=== PATIENT | female | born 1980 | race Caucasian/White ===

== ENCOUNTER 2024-11-24 09:38 | Outpatient (OUT) | payer OTHER, SELFPAY | END 2024-11-24 09:39 | disposition home or self-care (01) | PROVIDERS: Visit Provider Obstetrics & Gynecology | DX: Z01.818 Encounter for other preprocedural examination (principal); O02.1 Missed abortion | CPT/HCPCS: 86850; 86900; 86901; G0463 ==

== ENCOUNTER 2024-11-25 10:56 | Day surgery (SDC) | payer OTHER, SELFPAY ==
[2024-11-24 10:29] VITALS: BP 112/73; PULSE 77; TEMP 36.4; O2SAT 100; BMI 23.0
--- NOTE | 2024-11-24 11:06 | PM.PRESUREVA ---
History of Present Illness History of Present Illness Chief complaint: MISSED AB Narrative: Mrs. Connie Odell is a pleasant 44-year-old female who presents to presurgical testing today as she is scheduled for a D&C with suction for the diagnosis of missed with Dr. Conklin on 11/25/2024. She reports continued vaginal bleeding and cramping Review of Systems ROS Narrative REVIEW OF SYSTEMS: Negative except as stated in HPI, ten or more systems reviewed. Constitutional: No fever, chills, weakness ENT: No sore throat or epistaxis Cardiovascular: No edema, chest pain, palpitations, or activity intolerance Respiratory: No shortness of breath, cough, or wheezing Musculoskeletal: No joint pain or swelling Gastrointestinal: She reports continued vaginal bleeding and abdominal cramping no complaints of constipation, diarrhea, or vomiting Genitourinary: No dysuria or hematuria Neurological: No numbness, tingling, weakness, or headache Psychiatric: No mood changes PFSH PFSH Medical History (Updated 11/24/24 @ 10:35 by Janelle Amin) Rheumatoid arthritis ?M06.9 - Rheumatoid arthritis, unspecified (ICD-10) Hearing loss ?H91.90 - Unspecified hearing loss, unspecified ear (ICD-10) Thyroid cancer ?C73 - Malignant neoplasm of thyroid gland (ICD-10) 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 - Autoimmune thyroiditis (ICD-10) 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) Surgical History (Updated 11/24/24 @ 10:57 by Janelle Amin) History of thyroidectomy ?Z98.890 - Other specified postprocedural states (ICD-10) ?Z90.89 - Acquired absence of other organs (ICD-10) History of section ?Z98.891 - History of uterine scar from previous surgery (ICD-10) History of cholecystectomy ?Z90.49 - Acquired absence of other specified parts of digestive tract (ICD-10) Family History (Updated 11/24/24 @ 10:31 by Janelle Amin) Other Family history of COPD (chronic obstructive pulmonary disease) Family history of thyroid cancer Social History (Updated 11/24/24 @ 10:14 by Janelle Amin) Within the past year, how often did you have a drink containing alcohol: never Score interpretation: A score less than 3 is consistent with normal alcohol consumption. Smoking status: Never smoker Non-prescribed substance use: denies use Previous occupational history: [employer] Highest level of school completed/degree received: some college, no degree Meds Home Medications and Allergies Home Medications ?Medication ?Instructions ?Recorded ?Confirmed ?Type ivermectin 3 mg tablet 6 mg PO .every week 11/24/24 11/24/24 History levothyroxine 150 mcg capsule 150 mcg PO DAILY 11/24/24 11/24/24 History liothyronine 5 mcg tablet 5 mcg PO DAILY 11/24/24 11/24/24 History naltrexone 11/24/24 History tirzepatide (weight loss) 11/24/24 History Allergies Allergy/AdvReac Type Severity Reaction Status Date / Time fish allergy Allergy Severe Anaphylaxis Uncoded 11/24/24 09:24 Exam Narrative Exam Narrative: Constitutional: Awake, alert, comfortable, well-appearing, nontoxic, interactive, vital signs as charted Head: Normocephalic, atraumatic Eyes: Conjunctiva and lids normal to inspection, pupils normal ENT: Tympanic membranes pearly flanagan, nonerythematous, noninjected, naris patent, posterior oropharynx clear, oral mucosa moist Neck: Supple, normal appearance, normal range of motion, no meningeal signs, no lymphadenopathy Respiratory: No respiratory distress, breath sounds clear Cardiovascular: Regular rate and rhythm, strong and regular heart tones Abdomen: Nontender, normal bowel sounds, soft, no CVA tenderness Musculoskeletal: Normal gait, no swelling or edema Skin: No rashes or induration, no lesions, only visible skin inspected Neuro: No neurological deficits, normal sensation Psychiatric: Oriented ?3, normal affect Constitutional Vital Signs, click to edit/add: Last Vital Signs Temp 97.5 F L 11/24/24 10:29 Pulse 77 11/24/24 10:29 Resp 20 11/24/24 10:29 BP 112/73 11/24/24 10:29 Pulse Ox 100 11/24/24 10:29 O2 Del Method Room Air 11/24/24 10:29 Assessment and Plan Assessment and Plan (1) Missed : Plan Mrs. Rivera is scheduled for D&C with suction for missed AB on 11/25/[address] Conklin
[2024-11-25 11:05] VITALS: BP 109/77; PULSE 70; TEMP 36.3; O2SAT 100; BMI 23.1
[2024-11-25 11:06] LABS: Basophils Absolute Auto 0.1 10^3/uL (0.0-0.1); Basophils Percent Auto 1.2 % (0.2-2.0); Eosinophils Absolute Auto 0.1 10^3/uL (0.0-0.7); Eosinophils Percent Auto 1.1 % (0.9-7.0); Hematocrit 40.9 % (36.0-48.0); Hemoglobin 13.3 g/dL (12.0-16.0); Immature Granulocytes Abs Auto 0.01 10^3/uL (0.00-0.03); Immature Granulocytes Pct Auto 0.2 % (0.0-0.5); Lymphocytes Absolute Auto 2.1 10^3/uL (1.2-3.8); Lymphocytes Percent Auto 36.8 % (20.5-60.0); Mean Corpuscular HGB Conc 32.5 g/dL (29.9-35.2); Mean Corpuscular Hemoglobin 30.4 pg (26.7-34.0); Mean Corpuscular Volume 93.4 fL (81.0-99.0); Mean Platelet Volume 11.1 fL (9.5-13.5); Monocytes Absolute Auto 0.4 10^3/uL (0.3-0.8); Monocytes Percent Auto 6.8 % (1.7-12.0); Neutrophils Percent Auto 53.9 % (43.0-75.0); Platelet Count 221 10^3/uL (150-450); Red Blood Count 4.38 10^6/uL (4.20-5.40); Red Cell Distribution Width 12.3 % (11.0-15.0); White Blood Count 5.6 10^3/uL (4.0-11.0)
[2024-11-25 11:30] LABS: HCG Quantitative 65 mIU/mL
[2024-11-25] MEDS: LACTATED RINGER'S SOLUTION 1,000 ML 50 ML IV (11:45)
[2024-11-25] MEDS: LACTATED RINGER'S SOLUTION 1,000 ML 125 ML IV (14:25)
--- NOTE | 2024-11-25 14:29 | P.ON_ITS ---
Brief Operative Note Date of procedure: 11/25/24 Pre-op diagnosis general: incomplete first trimester Post-op diagnosis: same as pre-op Procedure: NAME OF PROCEDURE: [D&C suction ] PROCEDURE: The patient was taken back to the OR where she was given general anesthesia without difficulty. She was then placed in dorsal lithotomy position, prepped and draped in the normal sterile fashion. A weighted speculum was placed in the patient's vagina and the anterior lip of the cervix was identified and grasped with a single-tooth tenaculum. The patient was then gently dilated using Hegar dilators after we had sounded roughly to 12 cm. The suction curette was then tested. The suction curette was then placed in the patient's uterus and products of conception were removed using an 10-Gibraltarian suction curette. ?Excellent hemostasis was noted. The patient tolerated the procedure well. Sponge, lap, and needle counts were correct x 2. All instruments were then removed from the patient's vagina. The patient was taken to the Recovery Room in stable condition. ?? Anesthesia: MAC Surgeon: Misael Conklin Estimated blood loss (mL): 5 Pathology: other (poc) Condition: stable Disposition: PACU Urinary Catheter Management Urinary Catheter Management Straight: Cath placed during this visit: no
[2024-11-25 14:33] VITALS: BP 112/68; PULSE 116; TEMP 36.4; O2SAT 100
[2024-11-25 14:48] VITALS: BP 116/93; PULSE 83; O2SAT 100
[2024-11-25 15:03] VITALS: BP 119/86; PULSE 73; O2SAT 100
== END 2024-11-25 15:15 | disposition home or self-care (01) ==
PROVIDERS: Visit Provider Obstetrics & Gynecology
PROC: (CPT 1965; principal; 2024-11-25 12:00)
DX: O03.4 Incomplete spontaneous abortion without complication (principal); Z90.49 Acquired absence of other specified parts of digestive tract; E06.3 Autoimmune thyroiditis; Z85.850 Personal history of malignant neoplasm of thyroid; M06.9 Rheumatoid arthritis, unspecified
CPT/HCPCS: 59812; 36415; 84702; 85025; G0463; J2250; J2405; J3010

== ENCOUNTER 2025-02-06 11:18 | Outpatient (REF) | payer OTHER, SELFPAY | END 2025-02-06 11:19 | disposition home or self-care (01) | LOC: LAB 11:18 | PROVIDERS: Visit Provider Obstetrics & Gynecology | DX: N92.0 Excessive and frequent menstruation with regular cycle (principal); N93.8 Other specified abnormal uterine and vaginal bleeding; R10.2 Pelvic and perineal pain | CPT/HCPCS: 88305 ==

== ENCOUNTER 2025-02-21 12:59 | Outpatient (OUT) | payer OTHER, SELFPAY | END 2025-02-21 13:00 | disposition home or self-care (01) | LOC: PST 13:00 | PROVIDERS: Visit Provider Obstetrics & Gynecology | DX: Z01.818 Encounter for other preprocedural examination (principal); N92.0 Excessive and frequent menstruation with regular cycle; N93.9 Abnormal uterine and vaginal bleeding, unspecified; R10.2 Pelvic and perineal pain ==

== ENCOUNTER 2025-03-03 06:17 | Day surgery (SDC) | payer OTHER, SELFPAY ==
[2025-03-03] VITALS (11 sets, daily range): BP systolic 113–123; BP diastolic 62–77; PULSE 69–92; TEMP 36.1–36.2; O2SAT 79–100; BMI 22.5
--- OUTSIDE RECORDS SUMMARY | 2025-03-03 06:20 | XMS_ITS | Encounter Summary ---
Author Organization [facility] Address [address] [place] [place] [address] Care Team Providers Care Manager Medical Writing Name Role Phone lEysia Hall MD Primary Care Provider [phone] Elysia Hall MD Unavailable [phone] Encounter Details Date Type Department Care Team (Late st Contact Info) Description 01/05/2023 Abstract [facility] [address] [place] [address] [place] [address] [place] [address] Social History Tobacco Use Types Packs/Day Years Used Date Smoking Tobacco: Never Passive Smoke Exposure: Never Smokeless Tobacco: Never Alcohol Use Standard Drinks/Week Comments Yes 1 (1 standard drink = 0.6 oz pure alcohol) caffeine intake : 1-2 cups per day ; coffee Comments Unknown Sex and Gender Information Value Date Recorded Sex Assigned at Not on file Legal Sex Female 7:25 PM EDT Gender Identity Female 10/01/2022 7:25 PM EDT Sexual Orientation Not on file documented as of this encounter Plan of Treatment Upcoming Encounters Date Type Department Care Team (Late st Contact Info) Description 03/15/2025 1:20 PM EDT Office Visit [facility] [address] [place] [id number] Jessie Madrid PA [address] [place] [address] documented as of this encounter Visit Diagnoses Not on filedocumented in this encounter Care Teams Manager Medical Writing Relationship Specialty Start Date End Date Elysia Hall MD PCP - General Family Medicine 01/02/23 [place] [address] [place] [address] PCP - Medical [place] [employer] 12/18/22 10/06/24 documented as of this encounter
--- OUTSIDE RECORDS SUMMARY | 2025-03-03 06:20 | XMS_ITS | Encounter Summary ---
Author Organization [facility] Address [address] [place] [place] [address] Care Team Providers Care Cut Off Worker Name Role Phone Elysia Hall MD Primary Care Provider [phone] Elysia Hall MD Unavailable [phone] Encounter Details Date Type Department Care Team (Late st Contact Info) Description 01/07/2023 Orders Only [facility] [address] [facility] [address] [place] [address] [place], [place] [id number] Social History Tobacco Use Types Packs/Day Years [...] PM EDT Office Visit [facility] SCHMIDT [address] [place] [phone] Jessie Madrid PA [address] [place] [address] documented as of this encounter Procedures Procedure Name Priority Date/Time Associated Diagnosis Comments US THYROID Routine 01/07/2023 4:00 PM EDT documented in this encounter Results * US thyroid (01/07/2023 4:00 PM EDT) Anatomical Region Laterality Modality Head, Neck Ultrasound us Elysia Hall MD IMG US PROCEDURES Edited Result - Final documented in this encounter Visit Diagnoses Not on filedocumented in this encounter Care Teams Cut Off Worker Relationship Specialty Start Date End Date Elysia Hall MD PCP - General Family Medicine 01/02/23 [place] [address] [place] [address] PCP - Medical [place] [employer] 12/18/22 10/06/24 documented as of this encounter
--- OUTSIDE RECORDS SUMMARY | 2025-03-03 06:20 | XMS_ITS | Clinical Summary ---
Author Organization [facility] Address [address], [address] [place] [address] Care Team Providers Care Aviation Project Engineer Name Role Phone Elysia Hall DO Primary Care Provider [phone] Allergies Active Allergy Reactions Criticality Noted Date Comments Fish-Derived Products Nausea Only,Other (See Comments) High 01/16/2023 Vision loss Medications Levothyroxine Sodium (TIROSINT) 150 MCG CAPS Take 150 mcg by mouth daily 02/03/2024 Active liothyronine (CYTOMEL) 5 MCG tablet Take 1 tablet by mouth 2 times daily Active ivermectin 3 MG tablet Take by mouth once Active Active Problems Problem Noted Date Diagnosed Date Hypoparathyroidism after procedure 07/15/2023 Papillary thyroid carcinoma 07/15/2023 S/P total thyroidectomy 07/15/2023 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 Thyroid cancer 07/09/2023 Hearing loss of right ear 01/05/2023 Encounters Date Type Department Care Team Description 12/15/2024 3:00 PM EDT Office Visit [facility] [address] [place] [address] [place] [address] Elysia Hall DO Well adult exam (Primary Dx); Domitila's disease; Hypoparathyroidism after procedure; Papillary thyroid carcinoma (HCC); Thyroid cancer (HCC); Hearing loss of right ear, unspecified hearing loss type; Quincy Blankenship infection; S/P total thyroidectomy from Last 3 Months Social History Tobacco Use Types Packs/Day Years Used Date Smoking Tobacco: Never Smokeless Tobacco: Never Tobacco Cessation:Counseling Given: Not Answered [facility] Utilities Answer Date Recorded In the past 12 months has th e electric, gas, oil, or water company threatened to shut off services in your home? No 12/15/2024 PHQ-2 Answer Date Recorded PHQ-9 Total Score 0 12/15/2024 Exercise Vital Sign Answer Date Recorde d On average, how many days pe r week do you engage in moderate to strenuous exercise (like a brisk walk)? 6 days 12/14/2024 On average, how many minutes do you engage in exercise at this level? 50 min 12/14/2024 Hunger Vital Sign Answer Date Recorded Within the past 12 months, y ou worried that your food would run out before you got the money to buy more. Never true 12/16/19 25 Within the past 12 months, t he food you bought just didn't last and you didn't have money to get more. Never true 12/15/2024 PRAPARE - Transportation Answer Date Re corded In the past 12 months, has l ack of transportation kept you from medical appointments or from getting medications? No 11/18 In the past 12 months, has l ack of transportation kept you from meetings, work, or from getting things needed for daily living? No 12/15/2024 Housing Stability Vital Sign Answer Ramírez e Recorded In the last 12 months, was t here a time when you were not able to pay the mortgage or rent on time? No 12/15/2024 In the past 12 months, how m any times have you moved where you were living? 0 12/15/2024 At any time in the past 12 m [facility], were you homeless or living in a detention (including now)? No 12/15/2024 Food Insecurity Answer Date Recorded Within the past 12 months, y ou worried that your food would run out before you got the money to buy more. 1 12/15/2024 Within the past 12 months, t he food you bought just didn't last and you didn't have money to get more. 1 12/15/2024 Comments Unknown Sex and Gender Information Value Date Recorded Sex Assigned at Not on file Legal Sex Female 8:57 AM EST Gender Identity Not on file Sexual Orientation Not on file Last Filed Vital Signs Vital Sign Reading Time Taken Comments Blood Pressure 114/82 12/15/2024 3:17 PM EDT Pulse 94 12/15/2024 3:17 PM EDT Temperature - - Respiratory Rate 14 12/15/2024 3:17 PM EDT Oxygen Saturation 99% 12/15/2024 3:17 PM EDT Inhaled Oxygen Concentration - - Weight 69.9 kg (154 lb) 12/15/2024 3:17 PM EDT Height 174 cm (5' 8.5 ) 12/15/2024 3:17 PM EDT Body Mass Index 23.08 12/15/2024 3:17 PM EDT Plan of Treatment Health Maintenance Due Date Last Done Comments Varicella vaccine (1 of 2 - 13+ 2-dose series) 1993 HIV screen 1995 Hepatitis C screen 1998 Hepatitis B vaccine (1 of 3 - 19+ 3-dose series) 1999 Pap smear 2001 Cervical cancer screen 2010 HPV (without or with Pap) 2010 Lipids 2020 COVID-19 Vaccine (1 - 2023-2 5 season) 2024 Breast cancer screen 07/17/2024 07/17/2022 DTaP/Tdap/Td vaccine (2 - Td or Tdap) 08/25/2024 08/25/2014 Flu vaccine (#1) 02/17/2025 Depression Screen 12/15/2025 12/15/2024, 12/15/2024 HPV vaccine (No Doses Required) Completed Hepatitis A vaccine Aged Out No longe r eligible based on patient's age to complete this topic Hib vaccine Aged Out No longer eligi ble based on patient's age to complete this topic Meningococcal (ACWY) vaccine Aged Out No longer eligible based on patient's age to complete this topic Meningococcal B vaccine Aged Out No l onger eligible based on patient's age to complete this topic Pneumococcal 0-49 years Vaccine Aged Out No longer eligible b ased on patient's age to complete this topic Polio vaccine Aged Out No longer elig ible based on patient's age to complete this topic Insurance [employer] Care Teams Aviation Project Engineer Relationship Specialty Start Date End Date Elysia Hall DO [address] [place] [place] [address] [place] [address] PCP - General Family Medicine 11/08/24
--- OUTSIDE RECORDS SUMMARY | 2025-03-03 06:21 | XMS_ITS | Clinical Summary ---
Author Organization [facility] Address [address] [place] [address] Care Team Providers Care Brush Polisher Name Role Phone Elysia Hall DO Primary Care Provider [phone] Allergies Active Allergy Reactions Criticality Noted Date Comments Fish Containing Products Nausea Only,Oth er (See Comments),Nausea And Vomiting High 04/28/2019 Vision loss Medications naltrexone 1.5 mg capsule Take 1.5 mg by mouth once daily. Active ascorbic acid (vitamin C) (VITAMIN C) 100 mg Tablet Take 100 mg by mouth in the morning. Active coenzyme Q10 30 mg capsule Take 30 mg by mouth. Active collagen/biotin /ascorbic acid (COLLAGEN 1500 PLUS C ORAL) Active ngmlrfk-spwr-ho zfw-jrxl-[id number] 100 mg-150 mg- 50 mg-150 mg Capsule Active mecobalamin (B12 ACTIVE ORAL) Active FREE-TEXT MEDICATION Burn per patient OTC Active vitamin B complex (B COMPLEX ORAL) Active DANDELION ROOT ORAL Active digestive enzymes combo no.7 Capsule Active HYDROcodone-idalmis taminophen (NORCO) 5-325 mg tablet Take 1 tablet by mouth every six hours as needed for pain. 8 tablet 3 Active Additional Information Patient not taking.Reported on 09/02/2023 calcitRIOL 0.25 mcg capsule Take 1 capsule (0.25 mcg) by mouth once daily. Contact Dr Mittal's staff for refills BEFORE you are out of medication 90 capsule 4 3 Active Additional Information Patient not taking.Reported on 09/02/2023 ondansetron (ZOFRAN) 4 mg tablet Take 1 tablet (4 mg) by mouth every six hours as needed for nausea. 6 tablet 3 Active TIROSINT 150 mcg capsule Take 1 capsule (150 mcg) by mouth once daily, 30 min prior to meal. 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 Family History Medical History Relation Name Comments Autoimmune disease Father Cancer Father Autoimmune disease Mother Cancer Mother Anesth problems Neg Hx Bleeding disorder Neg Hx Deep vein thrombosis Neg Hx Pulmonary embolism Neg Hx Relation Name Status Comments Father Mother Social History Tobacco Use Types Packs/Day Years Used Date Smoking Tobacco: Never Smokeless Tobacco: Never Tobacco Cessation:Counseling Given: Not Answered Alcohol Use Standard Drinks/Week Comments Not Currently 0 (1 standard drink = 0.6 oz pur e alcohol) AUDIT-C Answer Date Recorded Q1: How often do you have a drink containing alcohol? Never 07/15/2023 Q2: How many drinks containi ng alcohol do you have on a typical day when you are drinking? Patient does not drink Q3: How often do you have si x or more drinks on one occasion? Never 07/15/2023 Hunger Vital Sign Answer Date Recorded Within the past 12 months, y ou worried that your food would run out before you got the money to buy more. Never true 07/15/20 23 Within the past 12 months, t he food you bought just didn't last and you didn't have money to get more. Never true 07/15/2023 PRAPARE - Transportation Answer Date Re corded In the past 12 months, has l ack of transportation kept you from medical appointments or from getting medications? No 06/20 In the past 12 months, has l ack of transportation kept you from meetings, work, or from getting things needed for daily living? No 07/15/2023 Comments No Sex and Gender Information Value Date Recorded Sex Assigned at Not on file Legal Sex Female 12:22 PM EDT Gender Identity Not on file Sexual Orientation Not on file Last Filed Vital Signs Vital Sign Reading Time Taken Comments Blood Pressure 127/72 04/21/2024 10:06 AM EDT Pulse 72 04/21/2024 10:06 AM EDT Temperature 36.3 C (97.3 F) 04/21/2024 10:06 AM EDT Respiratory Rate 16 04/21/2024 10:06 AM EDT Oxygen Saturation 97% 07/16/2023 7:18 AM EST Inhaled Oxygen Concentration - - Weight 68.7 kg (151 lb 7.3 oz) 04/21/2024 10:06 AM EDT Height 175.3 cm (5' 9 ) 07/15/2023 5:49 AM EST Body Mass Index 22.37 07/15/2023 5:49 AM EST Plan of Treatment Health Maintenance Due Date Last Done Comments Hepatitis C Screening 1980 Hepatitis B Vaccine ages 19 years and older (1 of 3 - 19+ 3-dose series) 1999 Cervical Cancer Screening: Cytology 2001 Alternating Mammogram/MRI 01/15/2023 07/17/2022 COVID-19 Vaccine (1 - 2023-2 5 season) 2024 Breast Cancer Screening 07/17/2024 Mammogram 07/17/2024 07/17/2022 DTaP,Tdap,and Td Vaccines (2 - Td or Tdap) 08/25/2024 08/25/2014 Influenza Vaccine (#1) 2025 Respiratory Syncytial Virus (RSV) or ages 60 years and older (1 - 1-dose 75+ series) 2055 Pneumococcal Combined Aged Out No camacho margaret eligible based on patient's age to complete this topic Respiratory Syncytial Virus (RSV) ages 0 thru 19 months Aged Out No longer eligible based on patient's age to complete this topic Insurance [facility] Care Teams Brush Polisher Relationship Specialty Start [place] [address] [place] [address] PCP - General Family Medicine 06/26/23
--- OUTSIDE RECORDS SUMMARY | 2025-03-03 06:21 | XMS_ITS | Encounter Summary ---
Author Organization [facility] Address [address] [place] [address] Care Team Providers Care Brass Chaser Name Role Phone Elysia Hall MD Primary Care Provider Elysia Hall MD Unavailable [phone] Encounter Details Date Type Department Care Team (Late st Contact Info) Description 05/18/2023 Abstract [facility] [address] [place] [place] [address] [place] [address] [place] [address] Social History Tobacco Use Types Packs/Day Years [...] PM EDT Office Visit [facility] SCHMIDT [address] [place] [phone] Jessie Madrid PA [address] [place] [address] documented as of this encounter Visit Diagnoses Not on filedocumented in this encounter Care Teams Brass Chaser Relationship Specialty Start Date End Date Elysia Hall MD PCP - General Family Medicine 01/02/23 [place] [address] [place] [address] PCP - Medical [place] [employer] 12/18/22 10/06/24 documented as of this encounter
--- OUTSIDE RECORDS SUMMARY | 2025-03-03 06:21 | XMS_ITS | Encounter Summary ---
Author Organization [facility] Address [id number] [address] [place] [address] Care Team Providers Care Land Planner Name Role Phone Elysia Hall DO Primary Care Provider [phone] Encounter Details Date Type Department Care Team (Late st Contact Info) Description 04/17/2023 Telephone [facility] [address] [facility] [address] [place] [phone] Rebecca Painter LPN Social History Tobacco Use Types Packs/Day Years Used Date Smoking Tobacco: Never Smokeless Tobacco: Never Alcohol Use Standard Drinks/Week Comments Yes 0 (1 standard drink = 0.6 oz pur e alcohol) social Childcare Answer Date Recorded Childcare Unknown 12/29/2018 Employment Answer Date Recorded Employment Unknown 12/29/2018 Purpose - Life Answer Date Recorded Purpose and direction in life Unknown Comments No Sex and Gender Information Value Date Recorded Sex Assigned at Female 04/30/2023 8:24 AM EDT Legal Sex Female 11:41 AM EDT Gender Identity Female 04/30/2023 8:24 AM EDT Sexual Orientation Not on file documented as of this encounter Miscellaneous Notes * Telephone Encounter - Rebecca Painter LPN - 04/17/2023 4:16 PM EDT PT CALLED STATING SHE WANTS TO TAKE BIOIDENTICAL THYROID HORMONE NOT SYNTHROID AND SHE WANTS TO KNOW WHY HER T3 WASN'T CHECKED. * Telephone Encounter - Jah Gonzales MD - 04/17/2023 4:16 PM EDT I check T3 if pt's are taking armor thyroid med . Does she want to go on Armor thyroid ? * Telephone Encounter - Rebecca Painter LPN - 04/17/2023 4:16 PM EDT SHE WANTS TO DISCUSS. documented in this encounter Plan of Treatment Upcoming Encounters Date Type Department Care Team (Late st Contact Info) Description 03/09/2025 10:00 AM EDT Office Ultrasound [facility], A Department of [facility] [address] [facility] [address] [place] [address] Jah Gonzales MD [address] [facility] [place] [address] documented as of this encounter Visit Diagnoses Not on filedocumented in this encounter Care Teams Land Planner Relationship Specialty Start Date End Date Elysia Hall DO PCP - General Family Medicine 05/11/23 documented as of this encounter
--- OUTSIDE RECORDS SUMMARY | 2025-03-03 06:21 | XMS_ITS | Patient Health Record ---
Author Organization [facility] [place] Address [address] [place] [address] Care Team Providers Care Grocery Store Associate Name Role Phone Elysia Hall DO Primary Care Provider Unavailabl e Allergies Allergen (clinical drug ingredient) Drug/Non Drug Allergy documented on EMR Reaction Allergy Type Onset Date Status Fish-EPA Unknown Drug Allergy Active Reason For Referral No Information Social History Tobacco Use: Social History Observation Description Date Details (start date - stop date) Never Smoker NA - NA Tobacco Use/Smoking Question Answer Notes Patient is a nonsmoker Problems Problem Type SNOMED Code ICD Code Onset Dates Problem Status W/U Status Risk Notes Problem Thyroid cancer (202949823) Cancer of thyroid (C73) Active confirmed Problem Non-toxic single thyroid nodule (167829340) Left thyroid nodule (E04.1) Active confirmed Plan Of Treatment Pending Test Test Name Order Date CMP (COMPLETE METABOLIC PANEL) 3 BILIRUBIN, DIRECT (CONJUGATED) 3 LIPID PANEL (CHOL/TRIG/HDL/LDL) 01/08/20 23 CBC WITH DIFF 01/07/2023 US Liver 01/28/2023 US Thyroid 01/07/2023 BILIRUBIN, IND 01/07/2023 PET/CT Skull Base to Mid-Thigh 3 NON-INSTRUMENT REPAIR SUPERVISOR CYTOLOGY REPORT 03/11/2023 Insurance Providers Payer Name Payer Address Payer Phone Subscriber Number Group Number Insured Name Patient Relationship to Insured Coverage Start Date Coverage End Date MMO [address] [place], [place] [id number] Connie Rivera Self - patient is the insured Medical (General) History Surgical History Surgery Date(Month/Year) Right Toe
--- OUTSIDE RECORDS SUMMARY | 2025-03-03 06:21 | XMS_ITS | Encounter Summary ---
Author Organization [facility] Address [address] [place] [address] Care Team Providers Care Fire Range Technician Name Role Phone Elysia Hall MD Primary Care Provider [phone] Elysia Hall MD Unavailable [phone] Encounter Details Date Type Department Care Team (Late st Contact Info) Description 06/26/2023 Abstract [facility] [address] [facility] [address] [place] [address] [place] [address] Social History Tobacco Use Types Packs/Day Years [...] PM EDT Office Visit SHABANA SCHMIDT [address] [facility] [place] [address] Jessie Madrid PA [address] [facility] [place] [address] documented as of this encounter Visit Diagnoses Not on filedocumented in this encounter Care Teams Fire Range Technician Relationship Specialty Start Date End Date Elysia aHll MD PCP - General Family Medicine 01/02/23 [place] [address] [place] [address] PCP - Medical [place] [employer] 12/18/22 10/06/24 documented as of this encounter
--- OUTSIDE RECORDS SUMMARY | 2025-03-03 06:21 | XMS_ITS | Encounter Summary ---
Author Organization [facility] Address [address] [place] [address] Care Team Providers Care Supervisor Burling And Joining Name Role Phone Francheska Hall MD Primary Care Provider [phone] Francheska Hall MD Unavailable [phone] Encounter Details Date Type Department Care Team (Late st Contact Info) Description 01/16/2023 Clinisync Result Encounter [facility] External Department [place] [address] [place] [address] Social History Tobacco Use Types Packs/Day Years [...] Description 03/15/2025 1:20 PM EDT Office Visit [facility] Erma SCHMIDT [address] [place] [address] Jessie Madrid PA [address] [place] [address] documented as of this encounter Procedures Procedure Name Priority Date/Time Associated Diagnosis Comments IR BIOPSY THYROID PERC CORE NEEDLE 01/16/2023 5:37 PM EDT MHPT HISTOLOGY [facility] Routine 01/16/2023 12:00 AM EDT documented in this encounter Results * IR BIOPSY THYROID PERC CORE NEEDLE (01/16/2023 5:37 PM EDT) Anatomical Region Laterality Modality Other 01/16/2023 5:37 PM EDT Narrative 01/19/2023 7:49 AM EDT PROCEDURE: ULTRASOUND GUIDED THYROID FNA 01/16/2023 COMPARISON: Outside thyroid ultrasound performed at [facility] HISTORY: ORDERING SYSTEM PROVIDED HISTORY: Thyroid enlarged Left lobe nodule TECHNIQUE AND FINDINGS: Informed consent was obtained after the procedure was discussed in detail including the risk, benefits, and alternatives. Madison protocol was followed. The neck was prepped and draped in sterile fashion and local anesthesia was achieved with lidocaine. 25 gauge needle was advanced under ultrasound guidance into a slightly irregular left thyroid nodule and fine-needle aspiration was performed. 3 passes were performed and the patient tolerated the procedure well. Ultrasound images show placement of the needle within the nodule on all occasions. Samples were given directly to the cytopathologist for slide preparation and review. Preliminary evaluation confirms adequate specimens for assessment. Postprocedure images show no local complication. Band-Aid was applied. The patient left the department in stable condition. EBL: None IMPRESSION: Successful ultrasound-guided fine-needle aspiration biopsy of a left thyroid nodule. Interpreted by: Hayder Sharif MD Signed by: Hayder Sharif MD 01/16/23 Final result Procedure Note Radiology, Radiologist, MD - 01/19/2023 PROCEDURE: ULTRASOUND GUIDED THYROID FNA 01/16/2023 COMPARISON: Outside thyroid ultrasound performed at [facility] HISTORY: ORDERING SYSTEM PROVIDED HISTORY: Thyroid enlarged Left lobe nodule TECHNIQUE AND FINDINGS: Informed consent was obtained after the procedure was discussed indetail including the risk, benefits, and alternatives. Madison protocol was followed. The neck was prepped and draped in sterile fashion and local anesthesia was achieved with lidocaine. 25 gauge needle was advancedunder ultrasound guidance into a slightly irregular left thyroid nodule and fine-needle aspiration was performed. 3 passes were performed and the patient tolerated the procedure well. Ultrasound images show placementof the needle within the nodule on all occasions. Samples were givendirectly to the cytopathologist for slide preparation and review. Preliminary evaluation confirms adequate specimens for assessment. Postprocedureimages show no local complication. Band-Aid was applied. The patient left the department in stable condition. EBL: None IMPRESSION: Successful ultrasound-guided fine-needle aspiration biopsy of a leftthyroid nodule. Interpreted by: Hayder Sharif MD Signed by: Hayder Sharif MD 01/16/23 Final result Francheska Hall MD [facility] Final Result * [facility] (01/16/2023 12:00 AM EDT) [facility] (NOTE) [id number] [facility] PATHOLOGISTS [facility] ANATOMIC PATHOLOGY [address] [place] [address]. [place], [place] [address] NONGYNECOLOGICAL CYTOPATHOLOGY CONSULTATION Patient Name: BRIGETTE ELLIS MR#: [id number] Specimen #[id number] Procedures/Addenda ADDENDUM AFTER OUTSIDE CONSULTATION Date Ordered: 02/02/2023 Status: Signed Out Date Complete: 02/02/2023 By: Homero Chavez D.O. Date Reported: 02/02/2023 INTERPRETATION THIS CASE WAS SENT TO THE [facility] FOR CONSULTATION. DR. LUISA SHIELDS RENDERED THE FOLLOWING DIAGNOSIS: THYROID, LEFT MID, FINE NEEDLE ASPIRATION, SMEAR PREPARATIONS, THINPREP AND CELL BLOCK ([id number]; 01/16/2023): ATYPIA OF UNDETERMINED SIGNIFICANCE. SPECIMEN CONSISTS PREDOMINANTLY OF HURTHLE CELLS. FURTHER COMMENTS THE SPECIMEN IS MODERATELY CELLULAR AND CONTAINS A POPULATION OF ATYPICAL EPITHELIOID CELLS CHARACTERIZED BY ROUND NUCLEI, SMOOTH TO SLIGHTLY IRREGULAR NUCLEAR CONTOURS AND MOST CHARACTERISTICALLY ABUNDANT AMOUNTS OF DENSELY GRANULAR CYTOPLASM. THE OVERALL MORPHOLOGIC AND IMMUNOHISTOCHEMICAL FEATURES ARE COMPATIBLE WITH HURTFUL CELLS/ONCOCYTES. A SUBSET OF THE CELLS SHOW SIGNIFICANTLY ENLARGED NUCLEI, WHICH MAY BE BLOCKER AND POLISHER GOLD WHEEL OF ENDOCRINE ATYPIA. OTHER FEATURES SUCH NUCLEAR IRREGULARITIES AND RARE NUCLEAR PSEUDOINCLUSION-LIKE AREAS CAN BE SEEN IN HURTHLE CELL/ONCOCYTIC LESIONS IN ADDITION TO OTHER DIAGNOSTIC ENTITIES, YOU HAVE NOTED. WHILE THE ABUNDANCE OF THESE HURTHLE CELLS IS ATYPICAL, IT IS NOTABLE THAT SELECT SMEAR PREPARATIONS AND THE CELLBLOCK MATERIAL ALSO CONTAINS A POPULATION OF SMALL MATURE APPEARING LYMPHOCYTES, WHICH CAN BE SEEN IN LYMPHOCYTIC THYROIDITIS. SUCH, THE NATURE OF THE HURTHLE CELLS IS UNCLEAR. THEREFORE, I WOULD CLASSIFY THE SPECIMEN UNDER THE BETHESDA CATEGORY OF ATYPIA OF UNDETERMINED SIGNIFICANCE . IF CLINICALLY INDICATED, REPEAT SAMPLING WITH CONCURRENT COLLECTION OF MATERIAL FOR MOLECULAR EVALUATION MAY BE CONSIDERED. PLEASE SEE THE COMPLETE REPORT ([id number]) FROM THE [facility] FOR DETAILS. THESE FINDINGS WERE DISCUSSED WITH DR. HALL ON 02/02/2023. AN ALIQUOT OF THE SPECIMEN WAS OBTAINED FOR MOLECULAR TESTING AT THE TIME OF THE BIOPSY, WHICH MAY AID IN DIRECTING CLINICAL MANAGEMENT. DR. HALL HAS REQUESTED THAT MOLECULAR TESTING BE CARRIED OUT. THESE RESULTS WILL BE FORTHCOMING IN A SUPPLEMENTAL REPORT. Homero Chavez D.O. MOLECULAR PATHOLOGY REPORT Date Ordered: 02/19/2023 Status: Signed Out Date Complete: 02/19/2023 By: Homero Chavez D.O. Date Reported: 02/19/2023 INTERPRETATION A SAMPLE FROM THIS SPECIMEN WAS SENT TO [facility] FOR AFIRMA (GENOMIC SEQUENCING TRIM MECHANIC) TESTING. PLEASE SEE THEIR COMPLETE REPORT FOR DETAILS. Homero Chavez D.O. 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 Varying degrees of nuclear atypia are identified. Nuclear pseudoinclusions are also present. Features of background lymphocytic thyroiditis are present. This case was seen in intradepartmental consultation (SS, SF, KG). A uniform consensus was not obtained. The reported findings above reflect my diagnostic impressions. This case will be forwarded to the [facility] for an expert second opinion. Their findings be forthcoming in a supplemental report. Diagnostic findings were discussed with Dr. Hall on 01/21/2023. Homero Chavez, Electronically Signed Out lj/01/21/2023 Clinical Information Thyroid nodule L mid. Source: A: THYROID, FINE NEEDLE ASPIRATION L MID Gross Description L MID Specimen received in CytoLyt solution, colorless fluid, 3 DQ,3 PAP slides prepared. IMMEDIATE EVALUATION: Evaluation episode: Satisfactory for evaluation. Elba Chavez DO. MICROSCOPIC DESCRIPTION NUMBER DIRECT SMEARS: 6 NUMBER THIN PREP: 1 NUMBER CELL BLOCK: 1 ADEQUATELY FIXED AND STAINED PREPARATIONS: 8 ASSESSMENT OF FOLLICULAR CELL/GROUP NUMBERS (at least 6 groups, each with at least 10 cells): Satisfactory for evaluation COLLOID: Scant INFLAMMATORY CELLS: Few HISTIOCYTES: Few ATYPICAL EPITHELIAL CELLS: Present NEOPLASTIC CELLS: Not identified BETHESDA DIAGNOSTIC CATEGORY: V Microscopic examination performed. MHPT 01/16/2023 01/19/2023 10: 18 AM EDT Narrative [facility] - 02/19/2023 12:48 PM EDT Original Ordering Provider: FRANCHESKA CARVAJAL Francheska Hall MD [facility] Final Result [facility] documented in this encounter Visit Diagnoses Not on filedocumented in this encounter Care Teams Supervisor Burling And Joining Relationship Specialty Start Date End Date Francheska Hall MD PCP - General Family Medicine 01/02/23 [place] [address] [place] [address] PCP - Medical [place] [employer] 12/18/22 10/06/24 documented as of this encounter
--- OUTSIDE RECORDS SUMMARY | 2025-03-03 06:21 | XMS_ITS | Encounter Summary ---
Author Organization [facility] Address [address] [place] [address] Care Team Providers Care Rn Radiation Name Role Phone Elysia Hall MD Primary Care Provider [phone] Elysia Hall MD Unavailable [phone] Encounter Details Date Type Department Care Team (Late st Contact Info) Description 01/16/2023 Abstract [facility] [address] [facility] [place] [address] [place] [address] [place] [address] Social History Tobacco Use Types Packs/Day Years [...] PM EDT Office Visit SHABANA SCHMIDT [address] [place] [address] Jessie Madrid PA [address] [facility] [place] [address] documented as of this encounter Visit Diagnoses Not on filedocumented in this encounter Care Teams Rn Radiation Relationship Specialty Start Date End Date Elysia Hall MD PCP - General Family Medicine 01/02/23 [place] [address] [place] [address] PCP - Medical [place] [employer] 12/18/22 10/06/24 documented as of this encounter
--- OUTSIDE RECORDS SUMMARY | 2025-03-03 06:21 | XMS_ITS | Encounter Summary ---
Author Organization [facility] Address [address] [place] [address] Care Team Providers Care Survey Cad Technician Name Role Phone Elysia Hall MD Primary Care Provider Elysia Hall MD Unavailable [phone] Encounter Details Date Type Department Care Team (Late st Contact Info) Description 06/03/2023 Abstract [facility] [address] [place] [address] [place] [address] [place] [address] Social History Tobacco Use Types Packs/Day Years [...] PM EDT Office Visit SHABANA SCHMIDT [address] [facility] [place] [address] Jessie Madrid PA [address] [place] [address] documented as of this encounter Visit Diagnoses Not on filedocumented in this encounter Care Teams Survey Cad Technician Relationship Specialty Start Date End Date Elysia Hall MD PCP - General Family Medicine 01/02/23 [place] [address] [place] [address] PCP - Medical [place] [employer] 12/18/22 10/06/24 documented as of this encounter
--- OUTSIDE RECORDS SUMMARY | 2025-03-03 06:21 | XMS_ITS | Encounter Summary ---
Author Organization [facility] [employer] [facility] [employer] Address [id number] [place] [address] Care Team Providers Care Cryptologist Name Role Phone Elysia Hall DO Primary Care Provider [phone] Encounter Details Date Type Department Care Team (Late st Contact Info) Description 01/31/2025 Results Follow-Up [facility] Adult Endocr[facility]ology, A Department of [facility] [address] [facility] [address] [place] [phone] Jah Gonzales MD [address] [facility] [place] [address] Thyroid profile includes TSH FT4, T3, free, Calcium Social History Tobacco Use Types Packs/Day Years Used Date Smoking Tobacco: Never Smokeless Tobacco: Never Alcohol Use Standard Drinks/Week Comments Not Currently 0 (1 standard drink = 0.6 oz pur e alcohol) Childcare Answer Date Recorded Childcare Unknown 12/29/2018 Employment Answer Date Recorded Employment Unknown 12/29/2018 Hunger Screening Answer Date Recorded Within the past 12 months we worried whether our food would run out before we got money to buy more. Never True 06/29/2024 Within the past 12 months th e food we bought just didn't last and we didn't have money to get more. Never True 06/29/2024 Purpose - Life Answer Date Recorded Purpose and direction in life Unknown Comments No Sex and Gender Information Value Date Recorded Sex Assigned at Female 04/30/2023 8:24 AM EDT Legal Sex Female 11:41 AM EDT Gender Identity Female 04/30/2023 8:24 AM EDT Sexual Orientation Not on file documented as of this encounter Progress Notes * Jah Gonzales MD - 01/31/2025 3:27 PM EDT Normal thyroid levels. documented in this encounter Miscellaneous Notes * Telephone Encounter - Jah Gonzales MD - 01/31/2025 3:27 PM EDT Ok to send Rx Okay to start the prescription, pend it and route it to me. documented in this encounter Plan of Treatment Upcoming Encounters Date Type Department Care Team (Late st Contact Info) Description 03/09/2025 10:00 AM EDT Office Ultrasound [facility], A Department of [facility] [address] [facility] [address] [place] [address] Jah Gonzales MD [address] [facility] [place] [address] documented as of this encounter Visit Diagnoses Not on filedocumented in this encounter Care Teams Cryptologist Relationship Specialty Start Date End Date Elysia Hall DO PCP - General Family Medicine 05/11/23 documented as of this encounter
--- OUTSIDE RECORDS SUMMARY | 2025-03-03 06:21 | XMS_ITS | Encounter Summary ---
Author Organization [employer] Address [id number] [address] [place] [address] Care Team Providers Care Manufacturing Controls Engineer Name Role Phone Elysia Hall DO Primary Care Provider [phone] Encounter Details Date Type Department Care Team (Late st Contact Info) Description 01/26/2024 Telephone [facility] [address] [facility] [address] [place] [address] Rebecca Painter LPN Social History Tobacco Use [...] got money to buy more. Never True 07/10/2023 Within the past 12 months th e food we bought just didn't last and we didn't have money to get more. Never True 07/10/2023 Purpose - Life Answer Date Recorded Purpose and direction in life Unknown Comments No Sex and Gender Information Value Date Recorded Sex Assigned at Female 04/30/2023 8:24 AM EDT Legal Sex Female 11:41 AM EDT Gender Identity Female 04/30/2023 8:24 AM EDT Sexual Orientation Not on file documented as of this encounter Miscellaneous Notes * Telephone Encounter - Rebecca Painter LPN - 01/26/2024 3:26 PM EDT SHE'S SEEING [facility] [place] AND DOESN'T WANT TO COME BACK HERE UNTIL AFTER THAT APPT. * Telephone Encounter - Jah Gonzales MD - 01/26/2024 3:26 PM EDT FI-noted documented in this encounter Plan of Treatment Upcoming Encounters Date Type Department Care Team (Late st Contact Info) Description 03/09/2025 10:00 AM EDT Office Ultrasound [facility], A Department of [facility] [address] [facility] [address] [place] [address] Jah Gonzales MD [address] [facility] [place] [address] documented as of this encounter Visit Diagnoses Not on filedocumented in this encounter Care Teams Manufacturing Controls Engineer Relationship Specialty Start Date End Date Elysia Hall DO PCP - General Family Medicine 05/11/23 documented as of this encounter
--- OUTSIDE RECORDS SUMMARY | 2025-03-03 06:21 | XMS_ITS | Encounter Summary ---
Author Organization [facility] Address [address] [facility] [place] [address] Care Team Providers Care Tailor Garment Fitter Name Role Phone Elysia Hall MD Primary Care Provider [phone] Encounter Details Date Type Department Care Team (Late st Contact Info) Description 11/22/2024 Orders Only [facility] [place] [address] [place] [address] Amanda Fish, [place] [address] [place] [address] Social History Tobacco Use Types Packs/Day Years [...] PM EDT Office Visit SHABANA SCHMIDT [address] [facility] [address] Jessie Madrid PA [address] [facility] [address] [place], [place] [address] documented as of this encounter Visit Diagnoses Not on filedocumented in this encounter Care Teams Tailor Garment Fitter Relationship Specialty Start Date End Date Elysia Hall MD PCP - General Family Medicine 01/02/23 documented as of this encounter
--- OUTSIDE RECORDS SUMMARY | 2025-03-03 06:21 | XMS_ITS | Encounter Summary ---
Author Organization [facility] Address [address] [place] [address] Care Team Providers Care Aircraft Mechanic Electrical And Radio Name Role Phone Elysia Hall MD Primary Care Provider [phone] Elysia Hall MD Unavailable [phone] Encounter Details Date Type Department Care Team (Late st Contact Info) Description 02/11/2023 Abstract [facility] [address] [facility] [place] [address] [place] [address] [place] [address] Social History Tobacco Use Types Packs/Day Years [...] EDT Office Visit SHABANA SCHMIDT [address] [place] [address] Jessie Madrid PA [address] [place] [address] documented as of this encounter Visit Diagnoses Not on filedocumented in this encounter Care Teams Aircraft Mechanic Electrical And Radio Relationship Specialty Start Date End Date Elysia Hall MD PCP - General Family Medicine 01/02/23 [place] [address] [place] [address] PCP - Medical [place] [employer] 12/18/22 10/06/24 documented as of this encounter
--- OUTSIDE RECORDS SUMMARY | 2025-03-03 06:21 | XMS_ITS | Encounter Summary ---
Author Organization [facility] Address [address] [facility] [address] Care Team Providers Care Foundation Coordinator Name Role Phone Elysia Hall MD Primary Care Provider [phone] Encounter Details Date Type Department Care Team (Late st Contact Info) Description 11/21/2024 Results Follow-Up SHABANA SCHMIDT [address] [place] [address] Amanda Fish, [facility] [address] [place] [address] Progesterone Social History Tobacco Use Types Packs/Day Years [...] EDT Office Visit SHABANA SCHMIDT [address] [facility] [place] [address] Jessie Madrid PA [address] [place], [place] [address] documented as of this encounter Visit Diagnoses Not on filedocumented in this encounter Care Teams Foundation Coordinator Relationship Specialty Start Date End Date Elysia Hall MD PCP - General Family Medicine 01/02/23 documented as of this encounter
--- OUTSIDE RECORDS SUMMARY | 2025-03-03 06:21 | XMS_ITS | Encounter Summary ---
Author Organization [employer] Address [id number] [address] [place] [address] Care Team Providers Care Dictating Machine Transcriber Name Role Phone Elysia Hall DO Primary Care Provider [phone] Reason for Visit * Reason Onset Date Comments Medication Reaction 05/15/2023 Encounter Details Date Type Department Care Team (Late st Contact Info) Description 05/15/2023 Telephone [facility] [address] [facility] [address] [place] [address] Odalis Davies CMA Medication Reaction Social History Tobacco Use Types Packs/Day Years [...] encounter Miscellaneous Notes * Telephone Encounter - Odalis Davies CMA - 05/15/2023 12:13 PM EDT Patient called and stated she was on tirosint 100. Patient stated that it is to much for her and she can not take it she stated it is making her heart race, she is having chest pain and anxiety. Patient stated she stopped taking the medication and would like to know what to do. Please advise * Telephone Encounter - Lisa Painter MD - 05/15/2023 12:[address] Lange patient * Telephone Encounter - Jah Gonzales MD - 05/15/2023 12:13 PM EDT See the last message from today. documented in this encounter Plan of Treatment Upcoming Encounters Date Type Department Care Team (Late st Contact Info) Description 03/09/2025 10:00 AM EDT Office Ultrasound [facility], A Department of [facility] [address] [facility] [address] [place] [address] Jah Gonzales MD [address] [facility] [place] [address] documented as of this encounter Visit Diagnoses Not on filedocumented in this encounter Care Teams Dictating Machine Transcriber Relationship Specialty Start Date End Date Elysia Hall DO PCP - General Family Medicine 05/11/23 documented as of this encounter
--- OUTSIDE RECORDS SUMMARY | 2025-03-03 06:21 | XMS_ITS | Encounter Summary ---
Author Organization [facility] Address [address] [place] [address] Care Team Providers Care Hazmat Tanker Driver Name Role Phone Elysia Hall MD Primary Care Provider [phone] Encounter Details Date Type Department Care Team (Late Contact Info) Description 11/24/2024 Abstract [facility] [address] [place] [address] [place] [address] Carly Love LPN Social History Tobacco Use Types Packs/Day [...] EDT Office Visit [facility] [address] [facility] [place] [address] Jessie Madrid PA [address] [place] [address] Dr [place], [facility] documented as of this encounter Visit Diagnoses Not on filedocumented in this encounter Care Teams Hazmat Tanker Driver Relationship Specialty Start Date End Date Elysia Hall MD PCP - General Family Medicine 01/02/23 documented as of this encounter
--- OUTSIDE RECORDS SUMMARY | 2025-03-03 06:21 | XMS_ITS | Encounter Summary ---
Author Organization [facility] Address [address] [place] [address] Care Team Providers Care Satellite Tv Technician Name Role Phone Elysia Hall MD Primary Care Provider [phone] Encounter Details Date Type Department Care Team (Late Contact Info) Description 02/06/2025 Abstract [facility] [address] [place] [address] [place] [address] Misael Conklin DO [address] [facility] [address] Gerber [place], [place] [address] Social History Tobacco Use Types Packs/Day Years [...] Description 03/15/2025 1:20 PM EDT Office Visit [facility] [address] [place] [address] [place] [address] Jessie Madrid PA [address] [facility] [address] [place], [facility] documented as of this encounter Visit Diagnoses Not on filedocumented in this encounter Care Teams Satellite Tv Technician Relationship Specialty Start Date End Date Elysia Hall MD PCP - General Family Medicine 01/02/23 documented as of this encounter
--- OUTSIDE RECORDS SUMMARY | 2025-03-03 06:21 | XMS_ITS | Encounter Summary ---
Author Organization [employer] Address [id number] [address] [place] [address] Care Team Providers Care Java Developer Architect Name Role Phone Elysia Hall DO Primary Care Provider [phone] Encounter Details Date Type Department Care Team (Late st Contact Info) Description 01/25/2024 [facility]phone [facility] [address] [facility] [address] [place] [address] Rebecca Painter LPN Social History [...] Telephone Encounter - Rebecca Painter LPN - 01/25/2024 3:45 PM EDT PT DOESN'T THINK SHE NEEDS THE US, SHE IS BEING FOLLOWED BY [facility] FOR [facility] CANCER. * Telephone Encounter - Jah Gonzales MD - 01/25/2024 3:45 PM EDT We won't do the ultrasound , it will be a regular visit without ultrasoun documented in this encounter Plan of Treatment Upcoming Encounters Date Type Department Care Team (Late st Contact Info) Description 03/09/2025 10:00 AM EDT [facility] Department of [facility] [address] [facility] [address] [place] [address] Jah Gonzales MD [address] [facility] [place] [address] documented as of this encounter Visit Diagnoses Not on filedocumented in this encounter Care Teams Java Developer Architect Relationship Specialty Start Date End Date Elysia Hall DO PCP - General Family Medicine 05/11/23 documented as of this encounter
--- OUTSIDE RECORDS SUMMARY | 2025-03-03 06:21 | XMS_ITS | Clinical Summary ---
Author Organization [facility] Address [address] [place] [address] Care Team Providers Care Physical Optics Teacher Name Role Phone Elysia Hall MD Primary Care Provider [phone] Allergies Active Allergy Reactions Criticality Noted Date Comments Fish Allergy Nausea Only,GI intolerance 019 Medications levothyroxine (Tirosint) 150 MCG capsule Take 150 mcg by mouth Daily 024 2024 Active liothyronine (Cytomel) 5 MCG tablet Take 5 mcg by mouth in the morning and 5 mcg before bedtime. Active NALTREXONE HCL PO Take 1.5 mg by mouth in the morning. Active ivermectin (Stromectol) 3 MG tablet Take 3 mg by mouth 1 (one) time Active fluticasone (Flonase) 50 MCG/ACT nasal spray Administer 2 sprays into each nostril in the morning. 022 2024 Discontinued Progesterone 200 MG suppositoryIndi cations:AMA (advanced maternal age) multigravida 35+, first trimester ([facility]) Insert 200 mg into the vagina at bedtime 30 suppository 025 2024 Discontinued Active Problems Problem Noted Date Diagnosed Date Hearing loss of right ear 01/05/2023 Encounters Date Type Department Care Team Description 02/14/2025 Refill [facility] [address] [place] [address] Amanda Fish, AME AMA (advanced maternal age) multigravida 35+, first trimester ([facility]) 02/06/2025 3:30 PM EDT Procedure Visit [facility] [address] [place] [address] Misael Conklin DO Pre-op examination; Request for sterilization; Menorrhagia with regular cycle; Abnormal uterine bleeding (AUB); Pelvic pain 02/06/2025 Abstract [facility] [address] [place] [address] Misael Conklin DO 02/06/2025 Travel 01/30/2025 Orders Only [facility] [place] [address] Kristan Finnegan LPN 12/23/2024 External Result Encounter [facility] External Department Unsolicited Elysia Hall MD 12/09/2024 External Result Encounter [facility] External Department Unsolicited Amanda Fish CNM from Last 3 Months Immunizations Immunization Administration Dates Next Due Tdap 08/25/2014 Family History Medical History Relation Name Comments No Known Problems Brother Arthritis Maternal Grandfather No Known Problems Son Relation Name Status Comments Brother 2 brothers Father Alive Maternal Grandfather Mother Alive Son Alive 1 son Social History Tobacco Use Types Packs/Day Years Used Date Smoking Tobacco: Never Passive Smoke Exposure: Never Smokeless Tobacco: Never Tobacco Cessation:Counseling Given: Not Answered Alcohol Use Standard Drinks/Week Comments Yes 1 (1 standard drink = 0.6 oz pure alcohol) caffeine intake : 1-2 cups per day ; coffee Comments Unknown Sex and Gender Information Value Date Recorded Sex Assigned at Not on file Legal Sex Female 7:25 PM EDT Gender Identity Female 10/01/2022 7:25 PM EDT Sexual Orientation Not on file Last Filed Vital Signs Vital Sign Reading Time Taken Comments Blood Pressure 100/60 02/06/2025 3:47 PM EDT Pulse 77 01/05/2023 4:01 PM EDT Temperature 36.8 C (98.2 F) 01/05/2023 4:01 PM EDT Respiratory Rate 16 01/05/2023 4:01 PM EDT Oxygen Saturation 98% 01/05/2023 4:01 PM EDT Inhaled Oxygen Concentration - - Weight 68.9 kg (152 lb) 02/06/2025 3:47 PM EDT Height 171.5 cm (5' 7.5 ) 01/05/2023 4:01 PM EDT Body Mass Index 23.46 01/05/2023 4:01 PM EDT Plan of Treatment Upcoming Encounters Date Type Department Care Team (Late st Contact Info) Description 03/15/2025 1:20 PM EDT Office Visit [facility] [address] [place] [address] Jessie Madrid PA [address] [facility] [place] [place] [address] Health Maintenance Due Date Last Done Comments Mammogram 07/17/2023 07/17/2022 Influenza Vaccine (#1) 2025 Pap Smear 07/17/2025 07/17/2022 Cervical Cancer Screening 07/17/2027 HPV/Cotest 07/17/2027 07/17/2022, 12/03/2017 Procedures Procedure Name Priority Date/Time Associated Diagnosis Comments ENDOMETRIAL BIOPSY Routine 02/08/2025 3: 29 PM EDT Pre-op examination Request for sterilization Menorrhagia with regular cycle Abnormal uterine bleeding (AUB) Pelvic pain POCT , URINE Routine 02/06/2025 3:57 PM EDT Pre-op examination Request for sterilization Menorrhagia with regular cycle Abnormal uterine bleeding (AUB) Pelvic pain URINALYSIS, MANUAL ONLY Routine 12/23/2024 9:39 AM EDT CULTURE, URINE, ROUTINE Routine 12/23/2024 9:39 AM EDT HEPATIC FUNCTION PANEL Routine 12/23/2024 9:33 AM EDT LIPID PANEL Routine 12/23/2024 9:33 AM EDT BASIC METABOLIC PANEL Routine 12/23/2024 9:33 AM EDT MAGNESIUM Routine 12/23/2024 9:33 AM EDT VITAMIN B12 Routine 12/23/2024 9:33 AM EDT FOLATE, SERUM Routine 12/23/2024 9:33 AM EDT CBC WITH AUTO DIFFERENTIAL Routine 12/23/2024 9:33 AM EDT HEPATITIS C ANTIBODY Routine 12/23/2024 9:30 AM EDT PROGESTERONE Routine 12/09/2024 10:40 AM EDT THINPREP PAP AND HPV MRNA E6/E7 REFLEX HPV 16,18/45 Routine 07/17/2022 PAP SMEAR Routine 07/17/2022 12:00 AM EST BI MAMMOGRAM SCREENING TOMOSYNTHESIS BILATERAL Routine 07/17/2022 Encounter for other screening for malignant neoplasm of breast Encounter for screening for malignant neoplasm of cervix Encounter for gynecological examination (general) (routine) without abnormal findings from Last 3 Months or Most Recently Relevant to Health Maintenance Results * Endometrial biopsy (02/08/2025 3:29 PM EDT) Carly Faulkner LPN - 02/08/2025 3:29 PM EDT Carly Love LPN 02/19/2025 9:00 PM Endometrial biopsy Date/Time: 02/08/2025 3:29 PM Performed by: Misael Conklin DO Authorized by: Misael Conklin DO Consent: Consent obtained: written Consent given by: patient Indications: Indications: abnormal uterine bleeding Pre-procedure: Urine test: negative Procedure: A bimanual exam was performed: no Tenaculum used: yes Cervix dilated: no Findings: Cervix: normal Specimen collected: specimen collected and sent to pathology Patient tolerance: tolerated well, no immediate complications us Misael Conklin DO IN CLINIC/BEDSIDE ORDERABLES Fin al Result * POCT , urine manually resulted (02/06/2025 3:57 PM EDT) Preg Test, Ur Negative Negative Urine 02/06/2025 3:57 PM EDT Misael Conklin DO POINT OF CARE TEST ENTER/EDIT OR DERABLES Final Result * (ABNORMAL) Urinalysis, manual only (12/23/2024 9:39 AM EDT) COLOR Yellow Yellow, Colorless [facility] TURBIDITY Clear Clear [facility] SPECIFIC GRAVITY 1.019 1.003 - 1.035 NA [facility] NITRITE Negative Negative [facility] PH, URINE 6.5 5.0 - 8.5 NA [facility] LEUKOCYTE ESTERASE Negative Negative [facility] PROTEIN Trace(A) Negative [facility] KETONES (URINE) Negative Negative [facility] UROBILINOGEN <1.1 eu/dL <1.1 eu/dL [facility] BILIRUBIN (URINE) Negative Negative [facility] BLOOD/HGB Large(A) Negative [facility] MUCOUS Present(A) None [facility] RED BLOOD CELLS 85(H) 0 - 5 NA [facility] SQUAMOUS EPITHELIUM <1 0 - 5 NA [facility] WHITE BLOOD CELLS 2 0 - 5 NA [facility] GLUCOSE (URINE) Negative Negative [facility] Comment: PERFORMED AT [address], [place] [address] 12/23/2024 9:39 AM EDT 12/23/2024 11:33 AM EDT Elysia Hall MD LAB URINE ORDERABLES Final Resu lt [facility] * Urine culture (12/23/2024 9:39 AM EDT) Urine Culture SEE RESULTS BELOW [facility] Comment: SPECIMEN SOURCE Urine Urine, Clean Catch Midstream CULTURE RESULTS 10-50,000 ORGANISMS/mL NORMAL UROGENITAL NASIM REPORT STATUS FINAL 12/24/2024 PER[address], [place] [address] 12/23/2024 9:39 AM EDT 12/23/2024 11:33 AM EDT Elysia Hall MD LAB MICROBIOLOGY - GENERAL SELIN JAMEYJOSHUA Final Result [facility] * CBC auto differential (12/23/2024 9:33 AM EDT) WHITE BLOOD CELL COUNT, WBC 5.3 4 - 11 x10E9/L [facility] RED BLOOD CELL COUNT, RBC 4.45 3.8 - 5.2 X10E12/L [facility] HEMOGLOBIN 13.6 11.7 - 15.5 g/dL [facility] HEMATOCRIT 40.1 35 - 47 % [facility] MEAN CELL VOLUME, MCV 90 80 - 100 fL [facility] MEAN CELL HEMOGLOBIN, MCH 30.6 27 - 34 pg [facility] MEAN CELL HEMOGLOGIN CONCENTRATION, MCHC 34.0 32 - 36 g/dL [facility] RED CELL DISTRIBUTION WIDTH, RDW 13.1 11.5 - 15 % [facility] PLATELET COUNT 176 150 - 450 X10E9/L [facility] MEAN PLATELET VOLUME, MPV 10.6 7 - 12 fL [facility] % NEUTROPHILS 64.3 % [facility] % LYMPHOCYTES 28.6 % [facility] % MONOCYTES 4.8 % [facility] % EOSINOPHILS 1.3 % [facility] % BASOPHILS 1.0 % [facility] ABSOLUTE NEUTROPHIL 3.4 1.5 - 6.6 10*3/uL [facility] ABSOLUTE LYMPHOCYTE 1.5 1.0 - 3.5 10*3/uL [facility] ABSOLUTE MONOCYTE 0.3 0.0 - 0.9 10*3/uL [facility] ABSOLUTE EOSINOPHIL 0.1 0.0 - 0.4 10*3/uL [facility] ABSOLUTE BASOPHIL 0.1 0.0 - 0.2 10*3/uL [facility] DIFFERENTIAL TYPE AUTOMATED DIFFERENTIAL [facility] Comment: PERFORMED AT [facility] [address],[place] [address] 12/23/2024 9:33 AM EDT 12/23/2024 11:35 AM EDT us Elysia Hall MD LAB BLOOD ORDERABLES Final Resu lt Performing Organization Address City/[facility]/ZIP Co de Phone Number [facility] * Magnesium (12/23/2024 9:33 AM EDT) MAGNESIUM 2.2 1.8 - 2.6 mg/dL [facility] Comment: PERFORMED AT [address],[place] [address] 12/23/2024 9:33 AM EDT 12/23/2024 11:35 AM EDT Elysia Hall MD LAB BLOOD ORDERABLES Final Resu lt Performing Organization Address [facility] de Phone Number [facility] * Folate (12/23/2024 9:33 AM EDT) FOLIC ACID 22.2 >5.8 ng/mL [facility] Comment: PERFORMED AT [address],[place] [address] 12/23/2024 9:33 AM EDT 12/23/2024 11:35 AM EDT Elysia Hall MD LAB BLOOD ORDERABLES Final Resu lt Performing Organization Address [facility] de Phone Number [facility] * Vitamin B12 (12/23/2024 9:33 AM EDT) VITAMIN B12 820 180 - 914 pg/mL [facility] Comment: PERFORMED AT [address],[place] [address] 12/23/2024 9:33 AM EDT 12/23/2024 11:35 AM EDT us Elysia Hall MD LAB BLOOD ORDERABLES Final Resu lt Performing Organization Address City/[facility] Co de Phone Number [facility] * Hepatic function panel (12/23/2024 9:33 AM EDT) TOTAL PROTEIN 7.2 6.0 - 8.0 g/dL [facility] ALBUMIN 4.4 3.2 - 5.3 g/dL [facility] TOTAL BILIRUBIN 0.7 0.3 - 1.2 mg/dL [facility] ALKALINE PHOSPHATASE 43 39 - 130 U/L [facility] AST 17 <=41 U/L [facility] ALT 19 <=31 U/L [facility] BILIRUBIN, DIRECT 0.1 <=0.4 mg/dL [facility] Comment: PERFORMED AT [address], [place] [address] 12/23/2024 9:33 AM EDT 12/23/2024 11:35 AM EDT Elysia Hall MD LAB BLOOD ORDERABLES Final Resu lt Performing Organization Address [facility] Co de Phone Number [facility] * (ABNORMAL) Lipid panel (12/23/2024 9:33 AM EDT) Pathologist [facility] CHOLESTEROL 198 150 - 200 mg/dL [facility] TRIGLYCERIDE 50 27 - 150 mg/dL [facility] HDL CHOLESTEROL 56 >39 mg/dL [facility] Comment: HDL <40 mg/dL - High Risk HDL > or = 40mg/dL- Desirable HDL >60 mg/dL - Negative Risk LDL (CALC) 132(H) <130 mg/dL [facility] Comment: LDL <100 mg/dL - Desirable LDL >160 mg/dL - High Risk CHOLESTEROL:HDL 3.5 1.0 - 5.0 NA [facility] VERY LOW LIPOPROTEIN 10 0 - 30 mg/dL [facility] Comment: PERFORMED [address], [place] [address] 12/23/2024 9:33 AM EDT 12/23/2024 11:35 AM EDT Elysia Hall MD LAB BLOOD ORDERABLES Final Resu lt Performing Organization Address City/[facility] Co de Phone Number [facility] * Basic metabolic panel (12/23/2024 9:33 AM EDT) Pathologist [facility] Sodium 141 134 - 146 mmol/L [facility] Potassium, Bld 3.9 3.5 - 5.0 mmol/L [facility] Chloride 104 98 - 109 mmol/L [facility] Carbon Dioxide 28 22 - 32 mmol/L [facility] Anion Gap 9 5 - 15 mmol/L [facility] BUN 15 5 - 23 mg/dL [facility] Creatinine 0.72 0.40 - 1.00 mg/dL [facility] Comment:METHOD TRACEABLE TO IDMS STANDARD Glucose 75 65 - 99 mg/dL [facility] Calcium 9.1 8.5 - 10.5 mg/dL [facility] EGFR >90 >=60 ml/min/1.7 3sq.m [facility] Comment: Reported eGFR is based on the CKD-EPI 2020 equation that does not use a race coefficient. PERFORMED AT [address], [place] [address] 12/23/2024 9:33 AM EDT 12/23/2024 11:35 AM EDT Elysia Hall MD LAB BLOOD ORDERABLES Final Resu lt [facility] * Hepatitis C antibody (12/23/2024 9:30 AM EDT) [facility] ANTI HCV W/PCR REFLEX Non-Reacti ve Non-Reacti ve [facility] Comment: If recent infection suspected, recommend repeat testing (>2 months). Kujkms-ym-gtjkyk ratio is <1.0. PERFORMED AT [address], [place] [address] 12/23/2024 9:30 AM EDT 12/23/2024 2:24 PM EDT Elysia Hall MD LAB BLOOD ORDERABLES Final Resu lt [facility] * Progesterone (12/09/2024 10:40 AM EDT) [facility] PROGESTERONE 1.1 ng/mL [facility] Comment: FEMALES: 1st Tri: 4.7-50.7 ng/ml 2nd Tri: 19.4-45.3 ng/ml MENSTRUATING FEMALES: Follicular: 0.3-1.5 ng/ml Mid Luteal: 5.2-18.6 ng/ml [employer]: <0.1-0.8 ng/ml Print requisition?->No PERFORMED AT [facility] [address],[place] [address] 12/09/2024 10:4 0 AM EDT 12/09/2024 4:00 PM EDT us Amanda Fish [facility] LAB BLOOD ORDERABLES Final R esult [facility] * THINPREP PAP AND HPV MRNA E6/E7 REFLEX HPV 16,18/45 (07/17/2022) CLINICAL INFORMATION: None given [facility] LMP: NONE GIVEN [facility] PREV. PAP: NONE GIVEN [facility] PREV. BX: NONE GIVEN [facility] SOURCE: None given [facility] STATEMENT OF ADEQUACY: SEE COMMENT [facility] Comment: Satisfactory for evaluation. Endocervical/transformation zone component present. INTERPRETATION/R ESULT: Negative for intraepithelial lesion or malignancy. [facility] CORRESPONDENCE SECTION SUPERVISOR : SEE COMMENT [facility] Comment: JAX IBRAHIM(ASCP) CT screening location: [facility], [address] [place] [address], [place] [address]. COMMENT SEE COMMENT [facility] Comment: EXPLANATORY NOTE: The Pap is a screening test for cervical cancer. It is not a diagnostic test and is subject to false negative and false positive results. It is most reliable when a satisfactory sample, regularly obtained, is submitted with relevant clinical findings and history, and when the Pap result is evaluated along with historic and current clinical information. HPV MRNA E6/E7 Not Detected Not Detected [facility] Comment: Methodology: [employer]-Mediated Amplification This assay detects E6/E7 viral messenger RNA (mRNA) from 14 high-risk HPV types (16,18,31,33,35,39,45,51,52,56,58,59,66,68). Cervical sources are required for HPV testing. If a vaginal source from a patient who has had a total hysterectomy with removal of cervix was submitted, please contact the testing laboratory for alternative testing options. For additional information, please refer to http://education.ePartners/faq/QIX441w6 (This link if provided for information/ educational purposes only.) 07/17/2022 Amanda Fish [facility] Final Result [facility] * Bilateral screening mammogram with tomosynthesis (07/17/2022) Anatomical Region Laterality Modality Breast Bilateral Mammography Impressions 07/17/2022 12:00 AM EST BIRADS 1: Negative mammogram Board Certified Radiologist. Accredited by the ACR and FDA. MAMMOGRAPHY IS VERY IMPORTANT TO YOUR HEALTH. THE CURRENT [employer] OF RADIOLOGY AND NATIONAL COMPREHENSIVE CANCER NETWORK GUIDELINES RECOMMENDS ANNUAL MAMMOGRAPHY BEGINNING AT AGE 40 THIS FACILITY USES A REMINDER SYSTEM TO ENSURE ALL PATIENTS RECEIVE REMINDER NOTIFICATIONS AT THE APPROPRIATE TIME BASED ON THE RECOMMENDATIONS OF THIS EXAM. Report reported and signed by Joe Brown on 07/22/2022 0735 Narrative 07/17/2022 12:00 AM EST PERFORMED AT [facility] LOCATION:[place] [address] COMPARISON: Initial baseline study TECHNIQUE: 2D and 3D Tomosynthesis of the right and left breasts was performed. FINDINGS: Breast composition demonstrates scattered fibroglandular densities. No suspicious microcalcifications, asymmetry, architectural distortion, or associated features are present. Procedure Note CONVERSION, GENERIC - 01/23/2023 PERFORMED AT [facility] LOCATION:[place] [address] COMPARISON: Initial baseline study TECHNIQUE: 2D and 3D Tomosynthesis of the right and left breasts wasperformed. FINDINGS: Breast composition demonstrates scattered fibroglandular densities. Nosuspicious microcalcifications, asymmetry, architectural distortion, or associatedfeatures are present. IMPRESSION: BIRADS 1: Negative mammogram Board Certified Radiologist. Accredited by the ACR and FDA. MAMMOGRAPHY IS VERY IMPORTANT TO YOUR HEALTH. THE CURRENT [employer] COLLEGEOF RADIOLOGY AND NATIONAL COMPREHENSIVE CANCER NETWORK GUIDELINES RECOMMENDS ANNUALMAMMOGRAPHY BEGINNING AT AGE 40 THIS FACILITY USES A REMINDER SYSTEM TO ENSURE ALL PATIENTS RECEIVEREMINDER NOTIFICATIONS AT THE APPROPRIATE TIME BASED ON THE RECOMMENDATIONS OF THIS EXAM. Report reported and signed by Joe Brown on 07/22/2022 0735 Amanda Fish CNM IMG BI PROCEDURES Final Resu lt * Pap Smear (07/17/2022 12:00 AM EST) Swab Cervical swab / Unknown Rubin Nurse [facility] CYTOLOGY ORDERABLES Final Result EXTERNAL LAB from Last 3 Months or Most Recently Relevant to Health Maintenance Insurance [employer] Care Teams Physical Optics Teacher Relationship Specialty Start Date End Date Elysia Hall MD PCP - General Family Medicine 01/02/23
--- OUTSIDE RECORDS SUMMARY | 2025-03-03 06:21 | XMS_ITS | Encounter Summary ---
Author Organization [employer] Address [id number] [address] [place] [address] Care Team Providers Care Pipelayer Name Role Phone Elysia Hall DO Primary Care Provider [phone] Encounter Details Date Type Department Care Team (Late st Contact Info) Description 04/22/2024 [facility] [address] [facility] [address] [place] [address] Rebecca Painter LPN Social History [...] Telephone Encounter - Rebecca Painter LPN - 04/22/2024 4:10 PM EDT [facility] RELEASED HER TO YOUR CARE FOR HER CARE AND SHE WANTS TO KNOW WHEN SHE NEEDS TO COME/ WHAT SHE NEEDS TO DO. * Telephone Encounter - Jah Gonzales MD - 04/22/2024 4:10 PM EDT Schedule first available US thyroid bed area with me * Telephone Encounter - Ramesh Murphy - 04/22/2024 4:10 PM EDT Scheduled patient for a follow up, she really didn't understand why you wanted the ultrasound. * Telephone Encounter - Jah Gonzales MD - 04/22/2024 4:10 PM EDT To look for any recurrence. Rebecca, Notify patient. Thank you . * Telephone Encounter - Rebecca Painter LPN - 04/22/2024 4:10 PM EDT SHE STATES SHE JUST HAD ALL THIS DONE OF [facility]. * Telephone Encounter - Jah Gonzales MD - 04/22/2024 4:10 PM EDT Okay, then schedule just an office visit. documented in this encounter Plan of Treatment Upcoming Encounters Date Type Department Care Team (Late st Contact Info) Description 03/09/2025 10:00 AM EDT Office Ultrasound [facility], A Department of [facility] [address] [facility] [address] [place] [address] Jah Gonzales MD [address] [facility] [place] [address] documented as of this encounter Visit Diagnoses Not on filedocumented in this encounter Care Teams Pipelayer Relationship Specialty Start Date End Date Elysia Hall DO PCP - General Family Medicine 05/11/23 documented as of this encounter
--- OUTSIDE RECORDS SUMMARY | 2025-03-03 06:21 | XMS_ITS | Encounter Summary ---
Author Organization [facility] Address [address] [place] [place] [address] Care Team Providers Care Corporate Financial Analyst Name Role Phone Elysia Hall MD Primary Care Provider [phone] Encounter Details Date Type Department Care Team (Late Contact Info) Description 11/24/2024 Abstract [facility] [address] [place] [address] [place] [address] Misael Conklin DO [address] [facility] [address] [facility] [address] [place], [place] [address] Social History Tobacco Use Types Packs/Day Years [...] Encounters Date Type Department Care Team (Late Contact Info) Description 03/15/2025 1:20 PM EDT Office Visit [facility] [address] [place] [address] [place] [address] Jessie Madrid PA [address] [place], [place] [address] documented as of this encounter Visit Diagnoses Not on filedocumented in this encounter Care Teams Corporate Financial Analyst Relationship Specialty Start Date End Date Elysia Hall MD PCP - General Family Medicine 01/02/23 documented as of this encounter
--- OUTSIDE RECORDS SUMMARY | 2025-03-03 06:21 | XMS_ITS | Encounter Summary ---
Author Organization [facility] Address [address] [place] [place] [address] Care Team Providers Care Watch Dial Maker Name Role Phone Elysia Hall MD Primary Care Provider [phone] Encounter Details Date Type Department Care Team (Late Contact Info) Description 01/30/2025 Orders Only [facility] [address] [place] [address] [place] [address] Kristan Finnegan LPN [address] [place] [address] Social History Tobacco Use Types Packs/Day Years [...] 1:20 PM EDT Office Visit [facility] [address] [facility] [place] [address] Jessie Madrid PA [address] [place], [place] [address] documented as of this encounter Procedures Procedure Name Priority Date/Time Associated Diagnosis Comments PAP SMEAR Routine 07/17/2022 12:00 AM EST documented in this encounter Results * Pap Smear (07/17/2022 12:00 AM EST) Swab Cervical swab / Unknown us Rubin [facility] CYTOLOGY ORDERABLES Final Result EXTERNAL LAB documented in this encounter Visit Diagnoses Not on filedocumented in this encounter Care Teams Watch Dial Maker Relationship Specialty Start Date End Date Elysia Hall MD PCP - General Family Medicine 01/02/23 documented as of this encounter
--- OUTSIDE RECORDS SUMMARY | 2025-03-03 06:21 | XMS_ITS | Clinical Summary ---
Author Organization [employer] Address [id number] [place] [address] Care Team Providers Care Twisting Frame Fixer Name Role Phone Elysia Hall DO Primary Care Provider [phone] Allergies Active Allergy Reactions Criticality Noted Date Comments Fish Containing Products Nausea,Vomiting Low 2018 Medications coenzyme Q10 30 mg capsule Take 1 capsule (30 mg total) by mouth 3 (three) times a day. Active mslykgf-xzwg-r teup-lkzu-swun yl 100 mg-150 mg- 50 mg-150 mg capsule Take by mouth. Active ascorbic acid, vitamin C, (VITAMIN C) 100 MG tablet Take 1 tablet (100 mg total) by mouth in the morning. Active cholecalcifero l (VITAMIN D3) 50,000 units capsule Take 1 capsule (50,000 Units total) by mouth in the morning. Active collagen/bioti n/ascorbic acid (COLLAGEN 1500 PLUS C ORAL) Take by mouth. Active liothyronine (CYTOMEL) 5 MCG tablet Take 1 tablet (5 mcg total) by mouth in the morning and at bedtime. Active levothyroxine sodium (TIROSINT) 150 mcg capsule Take 1 capsule (150 mcg total) by mouth in the morning. 90 capsule 3 02/17/20 25 Active levothyroxine (TIROSINT) 175 mcg capsuleIndicat ions:Domitila 's disease Take 175 mcg by mouth in the morning. 90 capsule 3 11/11/19 25 025 Discontinued(Re order) levothyroxine (TIROSINT) 175 mcg capsuleIndicat ions:Domitila 's disease Take 175 mcg by mouth in the morning. 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/2025 Results Follow-Up [facility], [facility] Department of [address] [address] Jah Gonzales MD Thyroid profile includes TSH FT4, T3, free, Calcium 01/31/2025 Travel 12/23/2024 Travel 12/09/2024 Travel 12/08/2024 Orders Only [facility], A Department of [address] [address] Jah Gonzales MD Domitila's disease (Primary Dx) from Last 3 Months Family History Medical History Relation Name Comments No Known Problems Brother 1 No Known Problems Brother 2 No Known Problems Father COPD Maternal Grandfather Thyroid cancer Mother Thyroid disease Mother Autoimmune disease Paternal Aunt Fibromyalgia Paternal Aunt Thyroid cancer Paternal Aunt Cancer Paternal Grandfather Lupus Paternal Grandmother Anesthesia problems Neg Hx Bleeding Disorder Neg Hx Breast cancer Neg Hx Clotting disorder Neg Hx Diabetes Neg Hx Heart attack Neg Hx Ovarian cancer Neg Hx Stroke Neg Hx Relation Name Status Comments Brother 1 Alive Brother 2 Alive Father Alive Maternal Grandfather Maternal Grandmother Mother Alive Paternal Aunt Alive Paternal Grandfather Paternal Grandmother Social History Tobacco Use Types Packs/Day Years [...] AM EDT Sexual Orientation Not on file Last Filed Vital Signs Vital Sign Reading Time Taken Comments Blood Pressure 104/73 06/29/2024 9:39 AM EST Pulse 71 06/29/2024 9:39 AM EST Temperature 36 C (96.8 F) 05/28/2023 2:30 PM EST Respiratory Rate 16 05/28/2023 2:30 PM EST Oxygen Saturation 96% 05/28/2023 2:30 PM EST Inhaled Oxygen Concentration - - Weight 67.8 kg (149 lb 6.4 oz) 06/29/2024 9:39 A M EST Height 175.3 cm (5' 9 ) 05/28/2023 9:24 AM EST Body Mass Index 22.06 05/28/2023 9:24 AM EST Plan of Treatment Upcoming Encounters Date Type Department Care Team (Late st Contact Info) Description 03/09/2025 10:00 AM EDT Office Ultrasound [facility], [facility] Department of [facility] [address] [facility] [address] [place] [id number] Jah Gonzales MD [address] [facility] [place] [address] Health Maintenance Due Date Last Done Comments Depression Screening 1992 COVID-19 Vaccine (3 - Moderna risk series) 08/12/2021 07/15/2021, 06/05/2021 DTaP,Tdap and Td Vaccines (2 - Td or Tdap) 08/25/2024 08/25/2014 Influenza Vaccine 03/20/2025 Adult BMI Screening 06/29/2025 06/29/2024 Tobacco Screening 06/29/2025 06/29/2024 Pap Smear 07/17/2025 07/17/2022 Medical Devices Not on file Procedures Procedure Name Priority Date/Time Associated Diagnosis Comments CALCIUM Routine 01/31/2025 9:32 AM EDT Postsurgical hypothyroidism Intrauterine T3, FREE Routine 01/31/2025 9:32 AM EDT Postsurgical hypothyroidism Intrauterine THYROID PROFILE INCLUDES TSH FT4 Routine 01/31/2025 9:32 AM EDT Postsurgical hypothyroidism Intrauterine URINALYSIS Routine 12/23/2024 9:39 AM EDT Autoimmune thyroiditis Infectious mononucleosis, unspecified without complication Malignant neoplasm of thyroid gland (CMS-HCC) Unspecified hearing loss, right ear Other specified postprocedural states Acquired absence of other organs URINE CULTURE Routine 12/23/2024 9:39 AM EDT Autoimmune thyroiditis Infectious mononucleosis, unspecified without complication Malignant neoplasm of thyroid gland (CMS-HCC) Unspecified hearing loss, right ear Other specified postprocedural states Acquired absence of other organs MAGNESIUM Routine 12/23/2024 9:33 AM EDT Autoimmune thyroiditis Infectious mononucleosis, unspecified without complication Malignant neoplasm of thyroid gland (CMS-HCC) Unspecified hearing loss, right ear Other specified postprocedural states Acquired absence of other organs FOLATE Routine 12/23/2024 9:33 AM EDT Autoimmune thyroiditis Infectious mononucleosis, unspecified without complication Malignant neoplasm of thyroid gland (CMS-HCC) Unspecified hearing loss, right ear Other specified postprocedural states Acquired absence of other organs VITAMIN B12 Routine 12/23/2024 9:33 AM EDT Autoimmune thyroiditis Infectious mononucleosis, unspecified without complication Malignant neoplasm of thyroid gland (CMS-HCC) Unspecified hearing loss, right ear Other specified postprocedural states Acquired absence of other organs LIVER PANEL Routine 12/23/2024 9:33 AM EDT Autoimmune thyroiditis Infectious mononucleosis, unspecified without complication Malignant neoplasm of thyroid gland (CMS-HCC) Unspecified hearing loss, right ear Other specified postprocedural states Acquired absence of other organs CBC WITH AUTO DIFFERENTIAL Routine 12/23/2024 9:33 AM EDT Autoimmune thyroiditis Infectious mononucleosis, unspecified without complication Malignant neoplasm of thyroid gland (CMS-HCC) Unspecified hearing loss, right ear Other specified postprocedural states Acquired absence of other organs BASIC METABOLIC PANEL Routine 12/23/2024 9:33 AM EDT Autoimmune thyroiditis Infectious mononucleosis, unspecified without complication Malignant neoplasm of thyroid gland (CMS-HCC) Unspecified hearing loss, right ear Other specified postprocedural states Acquired absence of other organs LIPID PROFILE Routine 12/23/2024 9:33 AM EDT Autoimmune thyroiditis Infectious mononucleosis, unspecified without complication Malignant neoplasm of thyroid gland (CMS-HCC) Unspecified hearing loss, right ear Other specified postprocedural states Acquired absence of other organs T3, FREE Routine 12/23/2024 9:33 AM EDT Postsurgical hypothyroidism Intrauterine THYROID PROFILE INCLUDES TSH FT4 Routine 12/23/2024 9:33 AM EDT Postsurgical hypothyroidism Intrauterine HEPATITIS C(HCV) ANTIBODY W/REFLEX TO PCR Routine 12/23/2024 9:30 AM EDT Autoimmune thyroiditis Infectious mononucleosis, unspecified without complication Malignant neoplasm of thyroid gland (CMS-HCC) Unspecified hearing loss, right ear Other specified postprocedural states Acquired absence of other organs THYROID PEROXIDASE ANTIBODY Routine 12/09/2024 10:40 AM EDT Domitila's disease PROGESTERONE Routine 12/09/2024 10:40 AM EDT T3, FREE Routine 12/09/2024 10:40 AM EDT Postsurgical hypothyroidism Intrauterine THYROID PROFILE INCLUDES TSH FT4 Routine 12/09/2024 10:40 AM EDT Postsurgical hypothyroidism Intrauterine from Last 3 Months Results * Thyroid profile includes TSH FT4 (01/31/2025 9:32 AM EDT) Only the most recent of3 resultswithin the time period is included. FREE T4 1.33 0.61 - 1.60 ng/dL 01/31/2025 2:[address] [facility] TSH 1.16 0.49 - 4.67 uIU/mL 01/31/2025 2:[address] [facility] Blood Venous blood / Unknown Venipuncture / Unknown 01/31/2025 9:32 AM EDT 01/31/2025 9:32 AM EDT Jah Gonzales MD LAB BLOOD ORDERABLES Final Result [facility] [address] [place] [id number], * T3, free (01/31/2025 9:32 AM EDT) Only the most recent of3 resultswithin the time period is included. FREE T3 3.19 2.50 - 3.90 pg/mL 01/31/2025 2:[address] [facility] Blood Venous blood / Unknown Venipuncture / Unknown 01/31/2025 9:32 AM EDT 01/31/2025 9:32 AM EDT Jah Gonzales MD LAB BLOOD ORDERABLES Final Result [facility] [address] [place] [address], [place] [phone] * Calcium (01/31/2025 9:32 AM EDT) CALCIUM 9.1 8.5 - 10.5 mg/dL 01/31/2025 2:[address] [facility] Blood Venous blood / Unknown Venipuncture / Unknown 01/31/2025 9:32 AM EDT 01/31/2025 9:32 AM EDT Jah Gonzales MD LAB BLOOD ORDERABLES Final Result [facility] [address] [place] [address], * (ABNORMAL) Urinalysis (12/23/2024 9:39 AM EDT) COLOR Yellow Yellow, Colorless 12/23/2024 12:[address] [facility] TURBIDITY Clear Clear 12/23/2024 12:[address] [facility] SPECIFIC GRAVITY 1.019 1.003 - 1.035 12/23/2024 12:[address] [facility] NITRITE Negative Negative 12/23/2024 12:[address] [facility] PH,URINE 6.5 5.0 - 8.5 12/23/2024 12:[address] [facility] LEUKOCYTE ESTERASE Negative Negative 12/23/2024 12:[address] [facility] PROTEIN Trace(A) Negative 12/23/2024 12:[address] [facility] KETONES (URINE) Negative Negative 12:[address] [facility] UROBILINOGEN <1.1 eu/dL <1.1 eu/dL 12/23/2024 12:[address] [facility] BILIRUBIN (URINE) Negative Negative 12/23/2024 12:[address] [facility] BLOOD/HGB Large(A) Negative 12/23/2024 12:[address] [facility] MUCOUS Present(A) None 12/23/2024 12:[address] [facility] R.B.CELLS 85(H) 0 - 5 12/23/2024 12:[address] [facility] SQUAMOUS EPITHELIUM <1 0 - 5 12/23/2024 12:[address] [facility] W.B.CELLS 2 0 - 5 12/23/2024 12:[address] [facility] GLUCOSE (URINE) Negative Negative 12:[address] [facility] Urine 12/23/2024 9:39 AM EDT 12/23/2024 9:39 AM EDT us Elysia Hall DO URINE ORDERABLES Final Result Performing Organization Address City/[facility]/ZIP Co de Phone Number [facility] [address] [place] [address], [place] [phone] * Urine Culture (12/23/2024 9:39 AM EDT) CULTURE RESULTS 10-50,000 ORGANISMS/mL NORMAL UROGENITAL NASIM 12/24/2024 6:[address] [facility] Urine Urine specimen collection, clean catch / Unknown 12/23/2024 9:39 AM EDT 12/23/2024 9:39 AM EDT us Elysia Hall DO MICROBIOLOGY - GENERAL ORDERABL ES Final Result [facility] [address] [place] [address], [place] [phone] * CBC auto differential (12/23/2024 9:33 AM EDT) WBC 5.3 4 - 11 x10E9/L 12/23/2024 12:[address] [facility] RBC Count 4.45 3.8 - 5.2 X10E12/L 12/23/2024 12:[address] [facility] Hemoglobin 13.6 11.7 - 15.5 g/dL 12/23/2024 12:[address] [facility] Hematocrit 40.1 35 - 47 % 12/23/2024 12:[address] [facility] MCV 90 80 - 100 fL 12/23/2024 12:[address] [facility] MCH 30.6 27 - 34 pg 12/23/2024 12:[address] [facility] MCHC 34.0 32 - 36 g/dL 12/23/2024 12:[address] [facility] RDW 13.1 11.5 - 15 % 12/23/2024 12:[address] [facility] Platelet Count 176 150 - 450 X10E9/L 12/23/2024 12:[address] [facility] MPV 10.6 7 - 12 fL 12/23/2024 12:[address] [facility] Neutrophils % 64.3 % 12/23/2024 12:[address] [facility] Lymphocytes % 28.6 % 12/23/2024 12:[address] [facility] Monocytes % 4.8 % 12/23/2024 12:[address] [facility] Eosinophils % 1.3 % 12/23/2024 12:[address] [facility] Basophils % 1.0 % 12/23/2024 12:[address] [facility] Neutrophils Absolute (A) 3.4 1.5 - 6.6 10*3/uL 12/23/2024 12:[address] [facility] Lymphocytes Absolute 1.5 1.0 - 3.5 10*3/uL 12/23/2024 12:[address] [facility] Monocytes Absolute 0.3 0.0 - 0.9 10*3/uL 12/23/2024 12:[address] [facility] Eosinophils Absolute 0.1 0.0 - 0.4 10*3/uL 12/23/2024 12:[address] [facility] Basophils Absolute 0.1 0.0 - 0.2 10*3/uL 12/23/2024 12:[address] [facility] Differential Type AUTOMATED DIFFERENTIAL 12/23/2024 12:[address] [facility] Blood Venous blood / Unknown Venipuncture / Unknown 12/23/2024 9:33 AM EDT 12/23/2024 9:33 AM EDT [facility] LAB BLOOD ORDERABLES Final Resu lt [facility] [address] [place] [address], [place] [phone] * Magnesium (12/23/2024 9:33 AM EDT) MAGNESIUM 2.2 1.8 - 2.6 mg/dL 12/23/2024 12:[address] [facility] Blood Venous blood / Unknown Venipuncture / Unknown 12/23/2024 9:33 AM EDT 12/23/2024 9:33 AM EDT [facility] LAB BLOOD ORDERABLES Final Resu lt [facility] [address] [place] [address], [place] [phone] * Folate (12/23/2024 9:33 AM EDT) FOLIC ACID 22.2 >5.8 ng/mL 12/23/2024 12:[address] [facility] Blood Venous blood / Unknown Venipuncture / Unknown 12/23/2024 9:33 AM EDT 12/23/2024 9:33 AM EDT [facility] Final Resu lt [facility] [address] [place] [address], * Vitamin B12 (12/23/2024 9:33 AM EDT) VITAMIN B12 820 180 - 914 pg/mL 12/23/2024 12:[address] [facility] Blood Venous blood / Unknown Venipuncture / Unknown 12/23/2024 9:33 AM EDT 12/23/2024 9:33 AM EDT [facility] LAB BLOOD ORDERABLES Final Resu lt Performing Organization Address City/[facility]/ZIP Co de Phone Number [facility] [address] [place] [address], [place] [phone] * Liver panel (12/23/2024 9:33 AM EDT) TOTAL PROTEIN 7.2 6.0 - 8.0 g/dL 12/23/2024 12:[address] [facility] ALBUMIN 4.4 3.2 - 5.3 g/dL 12/23/2024 12:[address] [facility] BILIRUBIN,TOTAL 0.7 0.3 - 1.2 mg/dL 12/23/2024 12:[address] [facility] ALKALINE PHOSPHATASE 43 39 - 130 U/L 12/23/2024 12:[address] [facility] AST 17 <=41 U/L 12/23/2024 12:[address] [facility] ALT 19 <=31 U/L 12/23/2024 12:[address] [facility] BILIRUBIN,DIRECT 0.1 <=0.4 mg/dL 12/23/2024 12:[address] [facility] Blood Venous blood / Unknown Venipuncture / Unknown 12/23/2024 9:33 AM EDT 12/23/2024 9:33 AM EDT [facility] LAB BLOOD ORDERABLES Final Resu lt [facility] [address] [place] [address], [place] [phone] * (ABNORMAL) Lipid profile (12/23/2024 9:33 AM EDT) CHOLESTEROL 198 150 - 200 mg/dL 12/23/2024 12:[address] [facility] TRIGLYCERIDE 50 27 - 150 mg/dL 12/23/2024 12:[address] [facility] HDL CHOLESTEROL 56 >39 mg/dL 12:[address] [facility] Comment: HDL <40 mg/dL - High Risk HDL > or = 40mg/dL- Desirable HDL >60 mg/dL - Negative Risk LDL (CALC) 132(H) <130 mg/dL 12/23/2024 12:[address] [facility] Comment: LDL <100 mg/dL - Desirable LDL >160 mg/dL - High Risk CHOLESTEROL:HDL 3.5 1.0 - 5.0 12:[address] [facility] VERY LOW LIPOPROTEIN 10 0 - 30 mg/dL 12/23/2024 12:[address] [facility] Blood Venous blood / Unknown Venipuncture / Unknown 12/23/2024 9:33 AM EDT 12/23/2024 9:33 AM EDT Elysia Norris Odeh DO LAB BLOOD ORDERABLES Final Resu lt [facility] [address] [place] [address], [place] [phone] * Basic Metabolic Panel (12/23/2024 9:33 AM EDT) SODIUM 141 134 - 146 mmol/L 12/23/2024 12:[address] [facility] POTASSIUM 3.9 3.5 - 5.0 mmol/L 12/23/2024 12:[address] [facility] CHLORIDE 104 98 - 109 mmol/L 12/23/2024 12:[address] [facility] CARBON DIOXIDE 28 22 - 32 mmol/L 12/23/2024 12:[address] [facility] ANION GAP 9 5 - 15 mmol/L 12/23/2024 12:[address] [facility] BLOOD UREA NITROGEN 15 5 - 23 mg/dL 12/23/2024 12:[address] [facility] CREATININE 0.72 0.40 - 1.00 mg/dL 12/23/2024 12:[address] [facility] Comment:METHOD TRACEABLE TO IDMS STANDARD GLUCOSE 75 65 - 99 mg/dL 12/23/2024 12:[address] [facility] CALCIUM 9.1 8.5 - 10.5 mg/dL 12/23/2024 12:[address] [facility] EGFR Non-Race Dependent >90 >=60 ml/min/1.7 3sq.m 12/23/2024 12:[address] [facility] Comment: Reported eGFR is based on the CKD-EPI 2020 equation that does not use a race coefficient. Blood Venous blood / Unknown Venipuncture / Unknown 12/23/2024 9:33 AM EDT 12/23/2024 9:33 AM EDT us Elysia T Rafael DO LAB BLOOD ORDERABLES Final Resu lt [facility] [address] [place] [address], * Hepatitis C(HCV) Ab w/ Reflex to PCR (12/23/2024 9:30 AM EDT) ANTI HCV W/PCR REFLX Non-Reacti ve Non-Reacti ve 12/23/2024 4:[address] [facility] Comment: If recent infection suspected, recommend repeat testing (>2 months). Olksei-qx-kfzjxq ratio is <1.0. Blood Venous blood / Unknown 12/23/2024 9:30 AM EDT 12/23/2024 9:30 AM EDT Elysia Hall DO LAB BLOOD ORDERABLES Final Resu lt [facility] [address] [place] [address], * (ABNORMAL) Thyroid peroxidase antibody (12/09/2024 10:40 AM EDT) THYROPEROXIDASE AB 44(H) <10 IU/mL 2024 5:[address] [facility] Blood Venous blood / Unknown Venipuncture / Unknown 12/09/2024 10:40 AM EDT 12/09/2024 10:45 AM EDT Jah Gonzales MD LAB BLOOD ORDERABLES Final Result Performing Organization Address City/[facility]/ZIP Co de Phone Number [facility] [address] [place] [address], * Progesterone (12/09/2024 10:40 AM EDT) PROGESTERONE 1.1 ng/mL 12/09/2024 5:[address] [facility] Comment: FEMALES: 1st Tri: 4.7-50.7 ng/ml 2nd Tri: 19.4-45.3 ng/ml MENSTRUATING FEMALES: Follicular: 0.3-1.5 ng/ml Mid Luteal: 5.2-18.6 ng/ml Post Roseline: <0.1-0.8 ng/ml Blood Venipuncture / Unknown 12/09/2024 10:40 AM EDT 12/09/2024 10:45 AM EDT us Amanda Fish [employer] LAB BLOOD ORDERABLES Nia l Result [facility] [address] [place] [address], [place] [phone] from Last 3 Months Insurance [employer] Care Teams Twisting Frame Fixer Relationship Specialty Start Date End Date Elysia Hall DO PCP - General Family Medicine 05/11/23
[2025-03-03 06:33] LABS: Hematocrit 38.5 % (36.0-48.0); Hemoglobin 12.9 g/dL (12.0-16.0); Immature Granulocytes Abs Auto 0.01 10^3/uL (0.00-0.03); Immature Granulocytes Pct Auto 0.2 % (0.0-0.5); Lymphocytes Absolute Auto 2.0 10^3/uL (1.2-3.8); Mean Corpuscular HGB Conc 33.5 g/dL (29.9-35.2); Mean Corpuscular Hemoglobin 30.4 pg (26.7-34.0); Mean Corpuscular Volume 90.6 fL (81.0-99.0); Platelet Count 190 10^3/uL (150-450); Red Blood Count 4.25 10^6/uL (4.20-5.40); White Blood Count 5.4 10^3/uL (4.0-11.0)
--- NOTE | 2025-03-03 08:43 | P.ON_ITS ---
Brief Operative Note Date of procedure: 03/03/25 Pre-op diagnosis general: menorrhagia, desires permanent sterilization, dysmen orrhea Post-op diagnosis: same as pre-op Procedure: NAME OF PROCEDURE: robotic assisted Laparoscopic bilateral salpingectomy, with Suzanne endometrial ablation with hysteroscopy PROCEDURE: The patient was taken back to the OR where she was prepped and draped in the normal sterile fashion after being placed in the dorsal lithotomy position, after being placed under general anesthesia without difficulty. a weighted speculum was then placed into the vagina. Pap and endometrial bx were performed without difficultyThe anterior lip was grasped with a single tooth tenaculum. The patient was then sounded to approximatley 9cm. The patient was gently sounded using Hegar dilators and the hysteroscope was passed through the cervix into the uterus where both ostia were seen. No gross evidence of polyps, fibroids or malignancy. The cervical length was noted to be 4cm. The Suzanne ablation apparatus was set to approximately 5cm in length. This was placed in through the cervix and into the uterus. After the seal was tested, at that time the total ablation of 120 seconds was performed with the Suzanne without difficulty. All instruments were removed from the vagina. A wet sponge stick was placed into the patient's vagina. Attention was then turned to the patient's abdomen, where a scalpel was used to make a small infraumbilical incision. The S retractors were then used to dissect the underlying layers until the fascia could be seen. The fascia was then grasped with Loulou clamps and tented up. A knife was then used to make a small incision to the fascia. The muscle was identified, at that time two sutures of #0 Vicryl on a GI needlewas then used and placed through the fascia. The peritoneum was then identified and entered bluntly. The 10-4 Darian was then placed into the patient's abdomen. This was confirmed with direct visualization of the bowel, using the laparoscope. The patient's abdomen was then insufflated using approximately 4 liters of CO2 gas. Survey of the patient's abdomen demonstrated normal appearing ovaries, uterus and tubes. A second and third lateral robotic ports, which was 8mm in size, was then placed laterally after incision was made in the skin under direct visualization. the robotic arms were engaged. The patient's tube on the patient's right side was identified. The tube was then tented up using a grasper. The ligasure was used to transect and coagulate the mesosalpingx from the fimbriated end to the insertion at the uterus, the tube w as amputated and removed in its entirety.? Excellent hemostasis was noted. ?This was performed on the contralateral sideas well. The lateral ports were then moved under direct visualization with excellent hemostasis. The abdomen was deinsufflated. All instruments were removed from the patient's abdomen. The fascia was closed using the #0 Vicryl on GI needle. The skin was closed using 4- 0 Vicryl subcuticularly. All instruments were removed from the patient's vagina as well. The patient was taken out of the dorsal lithotomy position and placed in the supine position and taken to recovery in stable condition. Sponge, lap and needle counts were correct x2. ??? Anesthesia: GALILEO Surgeon: Misael Conklin Branch Administrator: Kanwal Walsh Estimated blood loss (mL): 5 Pathology: other (tubes) Condition: stable Disposition: PACU Urinary Catheter Management Urinary Catheter Management [address]: Cath placed during this visit: no
[2025-03-03] MEDS: HYDROCODONE/ACET 5-325 MG TABLET 1 TAB PO (09:42)
== END 2025-03-03 10:32 | disposition home or self-care (01) ==
PROVIDERS: Visit Provider Obstetrics & Gynecology
PROC: (CPT 840; principal; 2025-03-03 07:30)
PROC: (CPT 840; 2025-03-03 07:30)
DX: Z30.2 Encounter for sterilization (principal); N92.0 Excessive and frequent menstruation with regular cycle; N93.9 Abnormal uterine and vaginal bleeding, unspecified; R10.2 Pelvic and perineal pain; Z90.49 Acquired absence of other specified parts of digestive tract; E06.3 Autoimmune thyroiditis; H91.90 Unspecified hearing loss, unspecified ear; Z85.850 Personal history of malignant neoplasm of thyroid; M06.9 Rheumatoid arthritis, unspecified
CPT/HCPCS: 58563; 58661; 36415; 84702; 85025; 88302; J0131; J1100; J1171; J1200; J1885; J2405; J2704

== ENCOUNTER 2025-05-10 10:34 | Outpatient (OUT) | payer OTHER, SELFPAY ==
--- OUTSIDE RECORDS SUMMARY | 2025-05-10 10:40 | XMS_ITS | Clinical Summary ---
Author Organization [employer] Address [id number] [place] [address] Care Team Providers Care Cut In Station Operator Name Role Phone Elysia Hall Primary Care Provider [phone] Allergies Active AllergyReactionsCriticalityNoted DateCommentsFish Containing Products Nausea,VxqvthrqEtp84/10/2019 Medications MedicationSigDispense QuantityRefillsLast FilledStart DateEnd DateStatus coenzyme Q10 30 mg capsule Take 1 capsule (30 mg total) by mouth in the morning and 1 capsule (30 mg total) at noon and 1 capsule (30 mg total) before bedtime.Active rroilrx-gnif-wxhhj-oreg-capryl 100 mg-150 mg- 50 mg-150 mg capsule Take by mouth.Active ascorbic acid, vitamin C, (VITAMIN C) 100 MG tablet Take 1 tablet (100 mg total) by mouth in the morning.Active cholecalciferol (VITAMIN D3) 50,000 units capsule Take 1 capsule (50,000 Units total) by mouth in the morning.Active collagen/biotin/ascorbic acid (COLLAGEN 1500 PLUS C ORAL) Take by mouth.Active liothyronine (CYTOMEL) 5 MCG tablet Take 1 tablet (5 mcg total) by mouth in the morning and at bedtime.Active levothyroxine sodium (TIROSINT) 150 mcg capsule Take 1 capsule (150 mcg total) by mouth in the morning. 90 capsule 5Active Active Problems No known active problems Encounters DateTypeDepartmentCare DlbxRxdnimeuvco52/01/2025Documentation [facility], [facility] Department of [facility] [address] [address] Jah Gonzales MD 04/18/2025Telephone [facility], A Department of [facility] [address] [address] Shanelle Yanes 04/02/2025Results Follow-Up [facility], A Department of [facility] [address] [address] Jah Gonzales MD Thyroid profile includes TSH FT4, Thyroglobulin quantitative w/antibody (tumor marker), T3, free03/31/20256590Koyldl50/09/2025Orders Only [facility], A Department of [address] [address] External, Scanning Provider 03/12/2025Results Follow-Up [facility], A Department of [address] [address] Jah Gonzales MD Calcium, Thyroid profile includes TSH FT4, Thyroglobulin quantitative w/antibody (tumor marker), T3, free03/09/2025 10:25 AM EDTAncillary Procedure [facility], A Department of [address] [address] 03/09/2025 10:00 AM EDTOffice Ultrasound [facility], A Department of [address] [address] Jah Gonzales MD Thyroid cancer ([facility]) (Primary Dx); Domitila's disease; Postsurgical hypothyroidism; Status post thyroid lvsctwx8703/09/20250075Sosgnn45/31/2025Orders Only [facility] [address] [facility] [address] [place] [address] Jah Gonzales MD Domitila's cpjwgps5302/16/2025Refill [facility], [facility] Department of [facility] [address] [facility] [address] [place] [phone] Windy Harper LPN Domitila's diseasefrom Last 3 Months Family History Medical HistoryRelationNameCommentsNo Known ProblemsBrother 1No Known Problems Brother 2No Known ProblemsFatherCOPDMaternal GrandfatherThyroid cancerMother Thyroid diseaseMotherAutoimmune diseasePaternal AuntFibromyalgiaPaternal Aunt Thyroid cancerPaternal AuntCancerPaternal GrandfatherLupusPaternal Grandmother Anesthesia problemsNeg HxBleeding DisorderNeg HxBreast cancerNeg HxClotting disorderNeg HxDiabetesNeg HxHeart attackNeg HxOvarian cancerNeg HxStrokeNeg Hx RelationNameStatusCommentsBrother 1AliveBrother 2AliveFatherAliveMaternal GrandfatherDeceasedMaternal GrandmotherDeceasedMotherAlivePaternal AuntAlive Paternal GrandfatherDeceasedPaternal GrandmotherDeceased Social History Tobacco UseTypesPacks/DayYears UsedDateSmoking Tobacco: NeverSmokeless Tobacco: Never Tobacco Cessation:Counseling Given: Not Answered Alcohol UseStandard Drinks/WeekCommentsNot Currently0 (1 standard drink = 0.6 oz pure alcohol)ChildcareAnswerDate LkouupthNleiiokiyTiueywu03/12/2019Employment AnswerDate UnhricruFlvffepqwxCmvzqxa07/12/2019Hunger ScreeningAnswerDate RecordedWithin the past 12 months we worried whether our food would run out before we got money to buy more.Never True03/09/2025Within the past 12 months the food we bought just didn't last and we didn't have money to get more.Never True03/09/2025Purpose - LifeAnswerDate RecordedPurpose and direction in life Wkbkzdt20/11/2021CommentsNoSex and Gender InformationValueDate Recorded Sex Assigned at MfdbaEravin98/12/2023 8:24 AM EDTLegal SkkAhhsbt04/06/2015 11:41 AM EDTGender GfskpyspJravqy15/12/2023 8:24 AM EDTSexual OrientationNot on file Last Filed Vital Signs Vital SignReadingTime TakenCommentsBlood Xolhhtjl876/8103/09/2025 10:04 AM EDT Uemjv635403/09/2025 10:04 AM XSRAsbctbahwgu64 ??C (96.8 ??F)05/28/2023 2:30 PM EST Respiratory Vwaf262707/28/2022 2:30 PM ESTOxygen Vjcqveabhi09%05/28/2023 2:30 PM ESTInhaled Oxygen Concentration--Uqjkce50.3 kg (152 lb 12.8 oz)03/09/2025 10:04 AM ULXAdnimy774.3 cm (5' 9 )03/09/2025 10:04 AM EDTBody Mass Index22.56 03/09/2025 10:04 AM EDT Plan of Treatment DateTypeDepartmentCare Team (Latest Contact Info)Mzflrpdvdjt18/27/2026 2:00 PM EDTOffice Ultrasound [facility] Department of [facility] [address] [facility] [address] [place] [address] Jah Gonzales MD [address] [facility] [place] [address] Health MaintenanceDue DateLast DoneCommentsDepression Msogpujgi28/20/1992COVID- 19 Vaccine (3 - Moderna risk series), 06/05/2021TaP,Tdap and Td Vaccines (2 - Td or Tdap)Influenza Oxfbjmm2003/20/2025 Pap Smeardult BMI Vkdomhefj04Tobacco Gdzqxslfq07 Medical Devices Not on file Procedures Procedure NamePriorityDate/TimeAssociated DiagnosisCommentsTESTOSTERONE, FREE AND TOTAL, FEMALE OR GTWEFGXWGkenyuu67/12/2025 12:45 PM EDT Personal history of other endocrine, nutritional and metabolic disease T3, PANNKvgjaco34/12/2025 12:45 PM EDT Postsurgical hypothyroidism Intrauterine THYROGLOBULIN QUANTITATIVE W/ANTIBODY (TUMOR MARKER)Mitfpeq3003/31/2025 12:45 PM EDT Thyroid cancer (CMS-HCC) THYROID PROFILE INCLUDES TSH FX5Fejafaa40/12/2025 12:45 PM EDT Thyroid cancer (CMS-HCC) GLUCOSE RANDOM OR INPDHUBGcqlvst33/12/2025 12:45 PM EDT Personal history of other endocrine, nutritional and metabolic disease ZSFNSPJWlcvgkf32/12/2025 12:45 PM EDT Personal history of other endocrine, nutritional and metabolic disease DHEA-FEROKGBAxwfvpo27/12/2025 12:45 PM EDT Personal history of other endocrine, nutritional and metabolic disease RENIHHFCBINSWywkxut73/12/2025 12:45 PM EDT Personal history of other endocrine, nutritional and metabolic disease YNKFWPQVCKczkaan87/12/2025 12:45 PM EDT Personal history of other endocrine, nutritional and metabolic disease T3, BIACSxuwbpz78/21/2025 11:00 AM EDT Thyroid cancer (CMS-HCC) THYROGLOBULIN QUANTITATIVE W/ANTIBODY (TUMOR MARKER)Vozpaua5203/09/2025 11:00 AM EDT Thyroid cancer (CMS-HCC) THYROID PROFILE INCLUDES TSH PL6Frwbavy73/21/2025 11:00 AM EDT Thyroid cancer (CMS-HCC) ZQPXOJHZbzceak61/21/2025 11:00 AM EDT Thyroid cancer (CMS-HCC) US AMB THYROID W/WO CZQALOYwvclwf97/21/2025 10:20 AM EDT Thyroid cancer (CMS-HCC) from Last 3 Months Results * (ABNORMAL) Testosterone, Free and Total, Female or Children (03/31/2025 12:45 PM EDT)ComponentValueRef RangeTest MethodAnalysis TimePerformed AtPathologist SignatureTESTOSTERONE BY MASS EOZR374 - 55 ng/dL04/06/2025 4:13 PM EDTARUP LABORATORIESComment: REFERENCE INTERVAL: Testosterone by Harpooner Females Premenopausal ??9-55 ng/dL Postmenopausal 5-32 ng/dL INTERPRETIVE INFORMATION: Testosterone by Harpooner Free or bioavailable testosterone measurements may provide supportive information. For individuals on testosterone-suppressing hormone therapies (e.g., antiandrogens or estrogens), refer to cisgender female reference intervals. For a complete set of all established reference intervals, refer to [facility] [place] - 2.[employer]/Tests/Pub/[id number]. This test was developed and its performance characteristics determined by [employer]. It has not been cleared or approved by the [place] Food and Drug Administration. This test was performed in a CLIA certified laboratory and is intended for clinical purposes. TESTOSTERONE, FREE BY MASS SPEC0.8(L)1.1 - 5.8 pg/mL04/06/2025 4:13 PM EDTARUP LABORATORIESComment: REFERENCE INTERVAL: Testosterone, Free by Harpooner Females Postmenopausal: 0.6 - 3.8 pg/mL INTERPRETIVE INFORMATION: Testosterone, Free by Harpooner Free testosterone concentration is calculated using total testosterone (measured by mass spectrometry) and the binding constant of testosterone and sex hormone-binding globulin (SHBG). For individuals on testosterone-suppressing hormone therapies (e.g., antiandrogens or estrogens), refer to cisgender female reference intervals. For a complete set of all established reference intervals, refer to [employer] LoveTests/Pub/9307619. This test was developed and its performance characteristics determined by [employer]. It has not been cleared or approved by the [place] Food and Drug Administration. This test was performed in a CLIA certified laboratory and is intended for clinical purposes. Performed By: [facility] [address] [place] [address] Sil[employer] Erector: Neo Noel MD, PhD CLIA Number: [id number] SEX HORMONE BINDING FHSINVUF86860 - 122 nmol/L04/06/2025 4:13 PM EDTARUP LABORATORIESComment: REFERENCE INTERVAL: Sex Hormone Binding Globulin Access complete set of age- and/or gender-specific reference intervals for this test in the [facility] Laboratory Test Directory ([employer]). Specimen (Source)Anatomical Location / LateralityCollection Method / Volume Collection TimeReceived TimeBloodVenous blood / UnknownVenipuncture / Unknown 03/31/2025 12:45 PM EDT03/31/2025 12:45 PM EDT Narrative Authorizing ProviderResult TypeResult StatusValeanthony Fish APRN-CNMLAB BLOOD ORDERABLESFinal ResultPerforming OrganizationAddressCity/State/ZIP CodePhone Number [facility] [address] [place] [address], * Thyroid profile includes TSH FT4 (03/31/2025 12:45 PM EDT) Only the most recent of2 resultswithin the time period is included. ComponentValueRef RangeTest MethodAnalysis TimePerformed AtPathologist Signature FREE T41.030.61 - 1.60 ng/dL03/31/2025 5:36 PM [facility] LABORATORYTSH1.000.49 - 4.67 uIU/mL03/31/2025 5:36 PM [facility] LABORATORYSpecimen (Source)Anatomical Location / LateralityCollection Method / VolumeCollection TimeReceived TimeBloodVenous blood / Unknown Venipuncture / Vqxfptd4403/31/2025 12:45 PM EDT03/31/2025 12:45 PM EDT Narrative Authorizing ProviderResult TypeResult StatusJah Gonzales MDLAB BLOOD ORDERABLESFinal ResultPerforming OrganizationAddressCity/State/ZIP CodePhone Number [facility] [address] [place] [address], * Thyroglobulin quantitative w/antibody (tumor marker) (03/31/2025 12:45 PM EDT) Only the most recent of2 resultswithin the time period is included. ComponentValueRef RangeTest MethodAnalysis TimePerformed AtPathologist Signature THYROGLOBULIN<0.1<=35.0 ng/mL03/31/2025 6:06 PM [facility] LABORATORYTHYROGLOBULIN AB3<4 IU/mL03/31/2025 6:06 PM [facility] LABORATORYSpecimen (Source)Anatomical Location / LateralityCollection Method / VolumeCollection TimeReceived TimeBloodVenous blood / Unknown Venipuncture / Nhamyek6003/31/2025 12:45 PM EDT03/31/2025 12:45 PM EDT Narrative [facility] - 03/31/2025 6:06 PM EDT Quantitation of Thyroglobulin may be unreliable due to the presence of Anti-Thyroglobulin antibodies. The results cannot be interpreted as absolute evidence for the presence or absence of malignant disease. Authorizing ProviderResult TypeResult StatusJah Gonzales [facility] BLOOD ORDERABLESFinal ResultPerforming OrganizationAddressCity/State/ZIP CodePhone Number [facility] [address] [place] [phone], * Progesterone (03/31/2025 12:45 PM EDT)ComponentValueRef RangeTest Method Analysis TimePerformed AtPathologist DqwtssjhmXCRDZNOGGFBK83.7ng/mL03/31/2025 5:34 PM [facility]ORATORYComment: FEMALES: 1st Tri: ??4.7-50.7 ng/ml 2nd Tri: ??19.4-45.3 ng/ml ? MENSTRUATING FEMALES: Follicular: ??0.3-1.5 ng/ml Mid Luteal: ??5.2-18.6 ng/ml Post Roseline: <0.1-0.8 ng/ml Specimen (Source)Anatomical Location / LateralityCollection Method / Volume Collection TimeReceived TimeBloodVenous blood / UnknownVenipuncture / Unknown 03/31/2025 12:45 PM EDT03/31/2025 12:45 PM EDT Narrative Authorizing ProviderResult TypeResult StatusValerie Floro REGISTRATION COORDINATOR-CNMLAB BLOOD ORDERABLESFinal ResultPerforming OrganizationAddressCity/State/ZIP CodePhone Number [facility] [address] [place] [address], * Insulin (03/31/2025 12:45 PM EDT)ComponentValueRef RangeTest MethodAnalysis TimePerformed AtPathologist SignatureINSULIN7.061.00 - 23.00 uIU/mL03/31/2025 5:51 PM [facility]YSpecimen (Source)Anatomical Location / LateralityCollection Method / VolumeCollection TimeReceived Time BloodVenous blood / UnknownVenipuncture / Uetbiea6203/31/2025 12:45 PM EDT 03/31/2025 12:45 PM EDT Narrative [facility] - 03/31/2025 5:51 PM EDT Ref. range is for FASTING NON-DIABETIC POPULATION. Authorizing ProviderResult TypeResult [facility] Hospitalpaty [facility] CenterN-CNMLAB BLOOD ORDERABLESFinal ResultPerforming OrganizationAddressCity/State/ZIP CodePhone Number [facility] [address] [place] [address], * DHEA-sulfate (03/31/2025 12:45 PM EDT)ComponentValueRef RangeTest Method Analysis TimePerformed AtPathologist SignatureDHEA S5619 - 231 ug/dL03/31/2025 5:37 PM [facility]YSpecimen (Source)Anatomical Location / LateralityCollection Method / VolumeCollection TimeReceived Time BloodVenous blood / UnknownVenipuncture / Bgpikiy4403/31/2025 12:45 PM EDT 03/31/2025 12:45 PM EDT Narrative Authorizing ProviderResult TypeResult StatusSt. Lawrence Rehabilitation Centerpaty [facility] REGISTRATION COORDINATOR-CNMLAB BLOOD ORDERABLESFinal ResultPerforming OrganizationAddressCity/State/ZIP CodePhone Number [facility] [address] [place] [address], [place] [phone] * Estradiol (03/31/2025 12:45 PM EDT)ComponentValueRef RangeTest MethodAnalysis TimePerformed AtPathologist VskqsouqdABSLALYFP93.9pg/mL03/31/2025 6:05 PM EDT [facility] (Source)Anatomical Location / LateralityCollection Method / VolumeCollection TimeReceived TimeBloodVenous blood / UnknownVenipuncture / Efupmtk3903/31/2025 12:45 PM EDT03/31/2025 12:45 PM EDT Narrative [facility] - 03/31/2025 6:05 PM EDT NON- FEMALES Mid follicular: 25-115 pg/mL Ovulatory Peak: 32.1-517 pg/mL Mid Luteal: 36.5-246 pg/mL Post-Menopausal Females: <15.0-25.1 pg/mL (Not on hormone therapy) The Access Sensitive Estradiol assay results are not intended to be used to measure the effectiveness of exogeneous Estradiol supplementation, for example, when the patient is on hormone replacement therapy. The presence of estradiol drug analogues and their metabolites could have an impact on estradiol recovery when using this assay. Authorizing ProviderResult TypeResult StatusSmackoverripaty Fish REGISTRATION COORDINATOR-CNAB BLOOD ORDERABLESFinal ResultPerforming OrganizationAddressCity/State/ZIP CodePhone Number [facility] [address] [place] [address], * T3, free (03/31/2025 12:45 PM EDT) Only the most recent of2 resultswithin the time period is included. ComponentValueRef RangeTest MethodAnalysis TimePerformed AtPathologist Signature FREE T33.282.50 - 3.90 pg/mL03/31/2025 5:33 PM EDTTOHIO STATE HARDING [facility]PITAL LABORATORYSpecimen (Source)Anatomical Location / LateralityCollection Method / VolumeCollection TimeReceived TimeBloodVenous blood / UnknownVenipuncture / Gxrpsla1003/31/2025 12:45 PM EDT03/31/2025 12:45 PM EDT Narrative Authorizing ProviderResult TypeResult StatusJah LEI BLOOD ORDERABLESFinal ResultPerforming OrganizationAddressCity/State/ZIP CodePhone Number [facility] [address] [place] [address], [place] [phone] * Glucose random or fasting (03/31/2025 12:45 PM EDT)ComponentValueRef RangeTest MethodAnalysis TimePerformed AtPathologist GvzkfbzmdYBSRXTI4225 - 99 mg/dL 03/31/2025 5:20 PM [facility]YSpecimen (Source) Anatomical Location / LateralityCollection Method / VolumeCollection Time Received TimeBloodVenous blood / UnknownVenipuncture / Oiqbwru2003/31/2025 12:45 PM EDT03/31/2025 12:45 PM EDT Narrative Authorizing ProviderResult TypeResult StatusAmanda FRAGACNMLAB BLOOD ORDERABLESFinal ResultPerforming OrganizationAddressCity/State/ZIP CodePhone Number [facility] [address] [place] [address], [place] [phone] * Calcium (03/09/2025 11:00 AM EDT)ComponentValueRef RangeTest MethodAnalysis TimePerformed AtPathologist SignatureCALCIUM9.38.5 - 10.5 mg/dL03/09/2025 2:04 PM [facility]YSpecimen (Source)Anatomical Location / LateralityCollection Method / VolumeCollection TimeReceived TimeBloodVenous blood / UnknownVenipuncture / Wcbutck2403/09/2025 11:00 AM EDT03/09/2025 11:00 AM EDT Narrative Authorizing ProviderResult TypeResult StatusJah LEI BLOOD ORDERABLESFinal ResultPerforming OrganizationAddressCity/State/ZIP CodePhone Number [facility] [address] [place] [address], [place] [phone] * Ultrasound thyroid w/wo biopsy (03/09/2025 10:20 AM EDT)Anatomical Region LateralityModalityUltrasoundSpecimen (Source)Anatomical Location / Laterality Collection Method / VolumeCollection TimeReceived Time Narrative 03/09/2025 10:33 AM EDT Indication: Thyroid cancer surveillance TECHNIQUE: Real-time grayscale sonographic evaluation of the thyroid bed and lateral neck was performed. Right lobe: Surgically absent Left lobe : Surgically absent Benign-appearing left lateral neck lymph node with a fatty hilum measuring 0.81 x 0.24 x 0.58 cm, kidney shaped,without any suspicious findings such as microcalcifications, internal vascular flow, irregular margins. Impression : No evidence of thyroid cancer recurrence, correlate with thyroglobulin levels, thorough scanning of the lateral and central compartments bilaterally of the neck fails to demonstrate any suspicious lymphadenopathy. Authorizing ProviderResult TypeResult StatusAtiliomirza Dohertychanning [facility] IMG ORDERABLESFinal Result from Last 3 Months Insurance MemberSubscriberPlan / Payer (Effective 2018-Present)Name:Connie Rivera Relation to Subscriber:SpouseName:Kush Rivera Date of :1986 (Home) Address: [address] [place] [address] Payer ID:Not on file Type:Not on file Address: [facility] [address] [place] [id number] Care Teams Team MemberRelationshipSpecialtyStart DateEnd Date Elysia Hall DO PCP - GeneralFamily Bfypsbop19/23/23
--- OUTSIDE RECORDS SUMMARY | 2025-05-10 10:40 | XMS_ITS | Clinical Summary ---
Author Organization [facility] Address [address] [place] [address] Care Team Providers Care Float Operator Name Role Phone Elysia Hall MD Primary Care Provider [phone] Allergies Active AllergyReactionsCriticalityNoted DateCommentsFish AllergyGI intolerance, Nausea Only,Nausea And UbvykwoeIhgn02/10/2019 Other Reaction(s): Other (See Comments), Vomiting Vision loss Fish Protein-Containing Drug ProductsNausea LrpqGorb52/30/2023 Other Reaction(s): Other (See Comments) Vision loss Medications MedicationSigDispense QuantityRefillsLast FilledStart DateEnd DateStatus levothyroxine (Tirosint) 150 MCG capsule Take 150 mcg by mouth Daily02/03/2024ctive liothyronine (Cytomel) 5 MCG tablet Take 5 mcg by mouth in the morning and 5 mcg before bedtime.Active NALTREXONE HCL PO Take 1.5 mg by mouth in the morning.Active ivermectin (Stromectol) 3 MG tablet Take 3 mg by mouth 1 (one) timeActive Active Problems ProblemNoted DateDiagnosed DateHearing loss of right ear01/05/2023 Encounters DateTypeDepartmentCare TsnlQjzoaxqdyvm38/12/2025External Result Encounter [facility] External Department Unsolicited Amanda Fish CNM 03/16/2025Orders Only [facility] [address] [place] [address] Amanda Fish CNM History of hormone fkmpuzchfzd04/27/2025 1:10 PM EDTOffice Visit [facility] [address] [place] [address] [place] [address] Jessie Madrid PA Postoperative visit; S/P tubal ligation; S/P endometrial pbcjeggc20/27/2025amboo flowsheet [facility] [address] [place] [address] Jessie Madrid PA 03/09/2025Telephone [facility] [address] [place] [address] Jessie Madrid PA 03/03/2025bstract [facility] [address] [place] [address] Misael Conklin, 03/03/2025bstract [facility] [address] [place] [address] Misael Conklin, 03/03/2025linisync Result Encounter [facility] External Department Unsolicited Misael Conklin, 02/14/2025Refill [facility] [address] [place] [address] Amanda Fish CNM AMA (advanced maternal age) multigravida 35+, first trimester ([facility])from Last 3 Months Immunizations ImmunizationAdministration DatesNext EdxMqgp9208/25/2014 Family History Medical HistoryRelationNameCommentsNo Known ProblemsBrotherArthritisMaternal GrandfatherNo Known ProblemsSonRelationNameStatusCommentsBrother2 brothersFather AliveMaternal GrandfatherMotherAliveSonAlive1 son Social History Tobacco UseTypesPacks/DayYears UsedDateSmoking Tobacco: NeverPassive Smoke Exposure: NeverSmokeless Tobacco: Never Tobacco Cessation:Counseling Given: Not Answered Alcohol UseStandard Drinks/WeekCommentsYes1 (1 standard drink = 0.6 oz pure alcohol)caffeine intake : 1-2 cups per day ; coffeeCommentsNoSex and Gender InformationValueDate RecordedSex Assigned at BirthNot on fileLegal Sex Xnowvu2510/01/2022 7:25 PM EDTGender IyabiwomApnnka01/15/2023 7:25 PM EDTSexual OrientationNot on file Last Filed Vital Signs Vital SignReadingTime TakenCommentsBlood Jlkrtepj291/7403/15/2025 1:21 PM EDT Ivnoc279901/05/2023 4:01 PM FGRZwiyvzyyhsr55.8 ??C (98.2 ??F)01/05/2023 4:01 PM EDTRespiratory Ncfg780201/05/2023 4:01 PM EDTOxygen Ietwzousrc09%01/05/2023 4:01 PM EDTInhaled Oxygen Concentration--Nukliq47 kg (150 lb)03/15/2025 1:21 PM EDT Snxkmd586.5 cm (5' 7.5 )01/05/2023 4:01 PM EDTBody Mass Index23.15001/05/2023 4:01 PM EDT Plan of Treatment Health MaintenanceDue DateLast KcfuEwuvyjsvPtifrebyw98/29/ Influenza Vaccine (#1)2025Pap Smear07/17/257379ervical Cancer Lsklmmzwa18/29/2027HPV/Ymamjo28, 12/03/2017 Procedures Procedure NamePriorityDate/TimeAssociated DiagnosisCommentsTESTOSTERONE, FREE AND TOTAL, FEMALE OR CHILDREN ([facility])Lchbdzu6203/31/2025 12:45 PM EDT EDCLVKJREUkmvzna68/12/2025 12:45 PM EDT INSULIN ([facility])Zyvqoib4903/31/2025 12:45 PM EDT DHEA JHMHJBCYfuvhpb14/12/2025 12:45 PM EDT FTAMTTJAIJPTFovovhy59/12/2025 12:45 PM EDT GLUCOSE ([facility])Fivufux8303/31/2025 12:45 PM EDT [facility] PREG QUANT WIAJtajdrx52/15/2025 6:24 AM EDT ALL CBC WITH AUTO GBEYKpapdob38/15/2025 6:24 AM EDT ENDOMETRIAL FTHVPHXzhkkfj33/23/2025 3:29 PM EDT Pre-op examination Request for sterilization Menorrhagia with regular cycle Abnormal uterine bleeding (AUB) Pelvic pain THINPREP PAP AND HPV MRNA E6/E7 REFLEX HPV 16,18/72Wmjwidc03/29/2022 PAP RXPRFLfninmf71/29/2022 12:00 AM ESTBI MAMMOGRAM SCREENING TOMOSYNTHESIS QQGEMXPPUVqrhgqp59/29/2022 Encounter for other screening for malignant neoplasm of breast Encounter for screening for malignant neoplasm of cervix Encounter for gynecological examination (general) (routine) without abnormal findings from Last 3 Months or Most Recently Relevant to Health Maintenance Results * GLUCOSE ([facility]) (03/31/2025 12:45 PM EDT)ComponentValueRef RangeTest MethodAnalysis TimePerformed AtPathologist VjnunovgnXaszuhq6692 - 99 mg/dL [facility]om[facility]: ?? PERFORMED AT [address] [address] Specimen (Source)Anatomical Location / LateralityCollection Method / Volume Collection TimeReceived Time03/31/2025 12:45 PM EDT03/31/2025 4:24 PM EDT Narrative Authorizing ProviderResult TypeResult StatusValerie Elba Fish CNMLAB BLOOD ORDERABLESFinal ResultPerforming OrganizationAddressCity/State/ZIP CodePhone Number [facility] * INSULIN ([facility]) (03/31/2025 12:45 PM EDT)ComponentValueRef RangeTest MethodAnalysis TimePerformed AtPathologist SignatureINSULIN7.061.00 - 23.00 uIU/mLPROMEDICAComment: Ref. range is for FASTING NON-DIABETIC POPULATION. ?? PERFORMED AT [address] [address] Specimen (Source)Anatomical Location / LateralityCollection Method / Volume Collection TimeReceived Time03/31/2025 12:45 PM EDT03/31/2025 4:24 PM EDT Narrative Authorizing ProviderResult TypeResult StatusAmanda Fish CNAB BLOOD ORDERABLESFinal ResultPerforming OrganizationAddressCity/State/ZIP CodePhone Number [facility] * (ABNORMAL) TESTOSTERONE, FREE AND TOTAL, FEMALE OR CHILDREN ([facility]) (03/31/2025 12:45 PM EDT)ComponentValueRef RangeTest MethodAnalysis Time Performed AtPathologist SignatureTESTOSTERONE, FEMALE OR XVDWUZHZ066 - 55 ng/dLPROMEDICAComment: REFERENCE INTERVAL: Testosterone by [employer] Counselor Females Premenopausal ??9-55 ng/dL Postmenopausal 5-32 ng/dL INTERPRETIVE INFORMATION: Testosterone by [employer] Counselor Free or bioavailable testosterone measurements may provide supportive information. For individuals on testosterone-suppressing hormone therapies (e.g., antiandrogens or estrogens), refer to cisgender female reference intervals. For a complete set of all established reference intervals, refer to [employer]/Tests/Pub/[id number]. This test was developed and its performance characteristics determined by [facility]. It has not been cleared or approved by the US Food and Drug Administration. This test was performed in a CLIA certified laboratory and is intended for clinical purposes. FREE TESTOSTERONE, FEMALE OR CHILDREN0.8(L)1.1 - 5.8 pg/mLPROMEDICAComment: REFERENCE INTERVAL: Testosterone, Free by [employer] Counselor Females Postmenopausal: 0.6 - 3.8 pg/mL INTERPRETIVE INFORMATION: Testosterone, Free by [employer] Counselor Free testosterone concentration is calculated using total testosterone (measured by mass spectrometry) and the binding constant of testosterone and sex hormone-binding globulin (SHBG). For individuals on testosterone-suppressing hormone therapies (e.g., antiandrogens or estrogens), refer to cisgender female reference intervals. For a complete set of all established reference intervals, refer to [employer]/Tests/Pub/[id number]. This test was developed and its performance characteristics determined by [facility]. It has not been cleared or approved by the US Food and Drug Administration. This test was performed in a CLIA certified laboratory and is intended for clinical purposes. Performed By: [facility] [address] [place] [address] [employer] Analyst: Neo Noel MD, PhD CLIA Number: [id number] SEX HORMONE BINDING GLOBULIN, FEMALE OR ERSBXUMM19628 - 122 nmol/LPROM[facility] Comment: REFERENCE INTERVAL: Sex Hormone Binding Globulin Access complete set of age- and/or gender-specific reference intervals for this test in the [employer] [facility] Test Directory ([employer]). Specimen (Source)Anatomical Location / LateralityCollection Method / Volume Collection TimeReceived Time03/31/2025 12:45 PM EDT03/31/2025 4:24 PM EDT Narrative Authorizing ProviderResult TypeResult StatusValeanthony Fish CNMLAB BLOOD ORDERABLESFinal ResultPerforming OrganizationAddressCity/State/ZIP CodePhone Number [facility] * Progesterone (03/31/2025 12:45 PM EDT)ComponentValueRef RangeTest Method Analysis TimePerformed AtPathologist RjbslshsyIYHIRHZFABPN05.7ng/mL[facility] Comment: FEMALES: 1st Tri: ??4.7-50.7 ng/ml 2nd Tri: ??19.4-45.3 ng/ml MENSTRUATING FEMALES: Follicular: ??0.3-1.5 ng/ml Mid Luteal: ??5.2-18.6 ng/ml [place]: <0.1-0.8 ng/ml ?? PERFORMED AT [address],[place] [address] Specimen (Source)Anatomical Location / LateralityCollection Method / Volume Collection TimeReceived Time03/31/2025 12:45 PM EDT03/31/2025 4:24 PM EDT Narrative Authorizing ProviderResult TypeResult StatusValeripaty Olverao CNMLAB BLOOD ORDERABLESFinal ResultPerforming OrganizationAddressty/State/ZIP CodePhone Number [facility] * DHEA-sulfate (03/31/2025 12:45 PM EDT)ComponentValueRef RangeTest Method Analysis TimePerformed AtPathologist SignatureDHEA S5619 - 231 ug/dLPROMEDICA Comment: ?? PERFORMED AT [address],[place] [address] Specimen (Source)Anatomical Location / LateralityCollection Method / Volume Collection TimeReceived Time03/31/2025 12:45 PM EDT03/31/2025 4:24 PM EDT Narrative Authorizing ProviderResult TypeResult StatusAmanda Fish CNMLAB BLOOD ORDERABLESFinal ResultPerforming OrganizationAddressty/State/ZIP CodePhone Number [facility] * Estradiol (03/31/2025 12:45 PM EDT)ComponentValueRef RangeTest MethodAnalysis TimePerformed AtPathologist LlzcjvcsxDWAKHQJNA23.9pg/mLPROMEDICAComment: NON- FEMALES Mid follicular: 25-115 pg/mL Ovulatory [...] on estradiol recovery when using this assay. ?? PERFORMED AT [address],[place] [address] Specimen (Source)Anatomical Location / LateralityCollection Method / Volume Collection TimeReceived Time03/31/2025 12:45 PM EDT03/31/2025 4:24 PM EDT Narrative Authorizing ProviderResult TypeResult StatusValeanthony Fish CNMLAB BLOOD ORDERABLESFinal ResultPerforming OrganizationAddressty/State/ZIP CodePhone Number [facility] * [facility] PREG QUANT HCG (03/03/2025 6:24 AM EDT)ComponentValueRef RangeTest Method Analysis TimePerformed AtPathologist SignatureHCG QUANTITATIVE<1mIU/mLTBH Comment: 5-50 ? 0.2-1 WEEK 50-500 ? 1-2 WEEKS 100-5,000 ?2-3 WEEKS 500-10,000 ? 3-4 WEEKS 1,000-50,000 ?? 4-5 WEEKS 10,000-100,000 5-6 WEEKS 15,000-200,000 6-8 WEEKS 10,000-100,000 2-3 MONTHS Specimen (Source)Anatomical Location / LateralityCollection Method / Volume Collection TimeReceived Time03/03/2025 6:24 AM EDT03/03/2025 6:26 AM EDT Narrative CLINISYNC - 03/03/2025 6:53 AM EDT Authorizing ProviderResult TypeResult StatusCorey Rubin DOCLINISYNCFinal Result Performing OrganizationAddressCity/State/ZIP CodePhone Number [facility] * ALL CBC WITH AUTO DIFF (03/03/2025 6:24 AM EDT)ComponentValueRef RangeTest MethodAnalysis TimePerformed AtPathologist SignatureTBH WBC5.44.0 - 11.0 10 3/uLTBHTBH RBC4.254.20 - 5.40 10 6/uLTBHTBH HGB12.912.0 - 16.0 g/dLTBHTBH HCT 38.536.0 - 48.0 %TBHTBH MCV90.681.0 - 99.0 fLTBHTBH MCH30.426.7 - 34.0 pgTBH TBH MCHC33.529.9 - 35.2 g/dLTBHTBH RDW12.211.0 - 15.0 %TBHTBH XDB219558 - 450 10 3/uLTBHTBH MPV11.49.5 - 13.5 fLTBHNEUTROPHILS PERCENT AUTO50.743.0 - 75.0 % TBHLYMPHOCYTES PERCENT AUTO36.320.5 - 60.0 %TBHMONOCYTES PERCENT AUTO8.31.7 - 12.0 %TBHTBH EO %3.00.9 - 7.0 %TBHBASOPHILS PERCENT AUTO1.50.2 - 2.0 %TBH IMMATURE GRANULOCYTES PCT AUTO0.20.0 - 0.5 %TBHNEUTROPHILS ABSOLUTE AUTO2.81.4 - 6.5 10 3/uLTBHLYMPHOCYTES ABSOLUTE AUTO2.01.2 - 3.8 10 3/uLTBHMONOCYTES ABSOLUTE AUTO0.50.3 - 0.8 10 3/uLTBHTBH EO #0.20.0 - 0.7 10 3/uLTBHBASOPHILS ABSOLUTE AUTO0.10.0 - 0.1 10 3/uLTBHIMMATURE GRANULOCYTES ABS AUTO0.010.00 - 0.03 10 3/uLTBHSpecimen (Source)Anatomical Location / LateralityCollection Method / VolumeCollection TimeReceived Time03/03/2025 6:24 AM EDT03/03/2025 6:26 AM EDT Fern CASAS - 03/03/2025 6:38 AM EDT Authorizing ProviderResult TypeResult StatusMisael Conklin DOCLINISYNCFinal Result Performing OrganizationAddressCity/State/[facility] CodePhone Number [facility] * Endometrial biopsy (02/08/2025 3:29 PM EDT) Narrative Carly Love LPN - 02/08/2025 3:29 PM EDT Carly Love LPN 02/19/2025 9:00 PM Endometrial biopsy Date/Time: 02/08/2025 3:29 PM Performed by: Misael Conklin DO Authorized by: Misael Conklin DO ?? Consent: ??Consent obtained: written ??Consent given by: patient Indications: ??Indications: abnormal uterine bleeding ?? Pre-procedure: ??Urine test: negative ?? Procedure: ??A bimanual exam was performed: no ?Tenaculum used: yes ?Cervix dilated: no ?? Findings: ??Cervix: normal ?Specimen collected: specimen collected and sent to pathology ?Patient tolerance: tolerated well, no immediate complications Authorizing ProviderResult TypeResult StatusMisael [facility]/BEDSIDE ORDERABLESFinal Result * THINPREP PAP AND HPV MRNA E6/E7 REFLEX HPV 16,18/45 (07/17/2022)ComponentValue Ref RangeTest MethodAnalysis TimePerformed AtPathologist SignatureCLINICAL INFORMATION:None givenNOMS LEGACY EXTERNAL LABLMP:NONE GIVENNOMS LEGACY EXTERNAL LABPREV. PAP:NONE GIVENNOMS LEGACY EXTERNAL LABPREV. BX:NONE GIVEN [facility] LEGACY EXTERNAL LABSOURCE:None givenNOMS LEGACY EXTERNAL LABSTATEMENT OF ADEQUACY:SEE COMMENTNORI LEGACY EXTERNAL LABComment: Satisfactory for evaluation. Endocervical/transformation zone component present. INTERPRETATION/RESULT:Negative for intraepithelial lesion or malignancy.[facility] LABCYTOTECHNOLOGIST:SEE COMMENTNORI [facility] EXTERNAL LABComment: PCJ, SCT(ASCP) CT screening location: [facility] [place], [address] [place] [address], [place] [address]. COMMENTSEE COMMENTNORI LEGACY EXTERNAL LABComment: EXPLANATORY NOTE: The Pap is a screening test for cervical cancer. It is not a diagnostic test and is subject to false negative and false positive results. It is most reliable when a satisfactory sample, regularly obtained, is submitted with relevant clinical findings and history, and when the Pap result is evaluated along with historic and current clinical information. HPV MRNA E6/E7Not DetectedNot DetectedNORI LEGACY EXTERNAL LABComment: Methodology: Liver Trimmer-Mediated Amplification This assay detects E6/E7 viral messenger RNA (mRNA) from 14 high-risk HPV types (16,18,31,33,35,39,45,51,52,56,58,59,66,68). Cervical sources are required for HPV testing. If a vaginal source from a patient who has had a total hysterectomy with removal of cervix was submitted, please contact the testing laboratory for alternative testing options. For additional information, please refer to http://education.Gogo[employer]in.Yangaroo/faq/TOB706t3 (This link if provided for information/ educational purposes only.) Specimen (Source)Anatomical Location / LateralityCollection Method / Volume Collection TimeReceived Time07/17/2022 Narrative Authorizing ProviderResult TypeResult StatusValeanthony Fish CNMECW LABSFinal ResultPerforming OrganizationAddressCity/State/ZIP CodePhone Number [facility] * Bilateral screening mammogram with tomosynthesis (07/17/2022)Anatomical Region LateralityModalityBreastBilateralMammographySpecimen (Source)Anatomical Location / LateralityCollection Method / VolumeCollection TimeReceived Time Impressions 07/17/2022 12:00 AM EST BIRADS 1: Negative mammogram Board Certified Radiologist. Accredited by the ACR and FDA. MAMMOGRAPHY IS VERY IMPORTANT TO YOUR HEALTH. THE CURRENT [place] [employer] AND [employer]WORK GUIDELINES RECOMMENDS ANNUAL MAMMOGRAPHY BEGINNING AT AGE 40 THIS FACILITY USES A REMINDER SYSTEM TO ENSURE ALL PATIENTS RECEIVE REMINDER NOTIFICATIONS AT THE APPROPRIATE TIME BASED ON THE RECOMMENDATIONS OF THIS EXAM. Report reported and signed by Joe Brown on 07/22/2022 0735 Narrative 07/17/2022 12:00 AM EST PERFORMED AT [facility] LOCATION:[place] [address] COMPARISON: Initial baseline study TECHNIQUE: ??2D and 3D Tomosynthesis of the right and left breasts was performed. FINDINGS: Breast composition demonstrates scattered fibroglandular densities. No suspicious microcalcifications, asymmetry, architectural distortion, or associated features are present. Procedure Note CONVERSION, GENERIC - 01/23/2023 PERFORMED AT [facility] LOCATION:[place] [address] COMPARISON: Initial baseline study TECHNIQUE: 2D and 3D Tomosynthesis of the right and left breasts wasperformed. FINDINGS: Breast composition demonstrates scattered fibroglandular densities. Nosuspicious microcalcifications, asymmetry, architectural distortion, or associatedfeatures are present. IMPRESSION: BIRADS 1: Negative mammogram Board Certified Radiologist. Accredited by the ACR and FDA. MAMMOGRAPHY IS VERY IMPORTANT TO YOUR HEALTH. THE CURRENT [place] [employer] AND NATIONAL COMPREHENS[employer] CANC[employer]WORK GUIDELINES RECOMMENDS ANNUAL MAMMOGRAPHY BEGINNING AT AGE 40 THIS FACILITY USES A REMINDER SYSTEM TO ENSURE ALL PATIENTS RECEIVEREMINDER NOTIFICATIONS AT THE APPROPRIATE TIME BASED ON THE RECOMMENDATIONS OF THIS EXAM. Report reported and signed by Joe Brown on 07/22/2022 0735 Authorizing ProviderResult TypeResult StatusValeanthony Fish CNMIMG BI PROCEDURES Final Result * Pap Smear (07/17/2022 12:00 AM EST)Specimen (Source)Anatomical Location / LateralityCollection Method / VolumeCollection TimeReceived TimeSwabCervical swab / Unknown Narrative Authorizing ProviderResult TypeResult StatusFazio Nurse [facility] ObLAB CYTOLOGY ORDERABLESFinal ResultPerforming OrganizationAddressCity/State/ZIP CodePhone Number EXTERNAL LAB from Last 3 Months or Most Recently Relevant to Health Maintenance Insurance * Guarantor: Connie Rivera TypeRelation to PatientDate of BirthPhone Billing AddressPersonal/[address] [place] [address] Care Teams Team MemberRelationshipSpecialtyStart DateEnd Date Elysia Hall MD PCP - GeneralFamily Medicine01/02/23
--- OUTSIDE RECORDS SUMMARY | 2025-05-10 10:40 | XMS_ITS | Clinical Summary ---
Author Organization [facility] Address [address], [address] [place] [address] Care Team Providers Care Hospice Team Lead Name Role Phone Elysia Hall Primary Care Provider [phone] Allergies Active AllergyReactionsCriticalityNoted DateCommentsFish Protein-Containing Drug ProductsNausea Only,Other (See Comments)High01/16/2023 Vision loss Medications MedicationSigDispense QuantityRefillsLast FilledStart DateEnd DateStatus Levothyroxine Sodium (TIROSINT) 150 MCG CAPS Take 150 mcg by mouth daily02/03/2024ctive liothyronine (CYTOMEL) 5 MCG tablet Take 1 tablet by mouth 2 times dailyActive ivermectin 3 MG tablet Take by mouth onceActive Active Problems ProblemNoted DateDiagnosed DateHypoparathyroidism after oqadouwyj37/27/2023 Papillary thyroid sjcuihsvx57/27/2023S/P total skzerhqvmktzr63/27/2023Epstein Blankenship krqahsgot98/21/2023Hashimoto's zofjuyj2907/09/2023Thyroid rjuzoy7307/09/2023 Hearing loss of right ear01/05/2023 Social History Tobacco UseTypesPacks/DayYears UsedDateSmoking Tobacco: NeverSmokeless Tobacco: Never Tobacco Cessation:Counseling Given: Not Answered [facility] UtilitiesAnswerDate RecordedIn the past 12 months has the electric, gas, oil, or water company threatened to shut off services in your home?No12/15/2024 PHQ-2AnswerDate RecordedPHQ-9 Total Eyewu753Exercise Vital SignAnswer Date RecordedOn average, how many days per week do you engage in moderate to strenuous exercise (like a brisk walk)?6 days12/14/2024On average, how many minutes do you engage in exercise at this level?50 min12/14/2024Hunger Vital SignAnswerDate RecordedWithin the past 12 months, you worried that your food would run out before you got the money to buymore.Never true12/15/2024Within the past 12 months, the food you bought just didn't last and you didn't have money to get more.Never true12/15/2024PRAPARE - TransportationAnswerDate RecordedIn the past 12 months, has lack of transportation kept you from medical appointments or from getting medications?No12/15/2024In the past 12 months, has lack of transportation kept you from meetings, work, or from getting things needed for daily living?No12/15/2024Housing Stability Vital SignAnswerDate RecordedIn the last 12 months, was there a time when you were not able to pay the mortgage or rent on time?No12/15/2024In the past 12 months, how many times have you moved where you were living?t any time in the past 12 months, were you homeless or living in a halfway (including now)?No12/15/2024 Food InsecurityAnswerDate RecordedWithin the past 12 months, you worried that your food would run out before you got the money to buymore.Within the past 12 months, the food you bought just didn't last and you didn't have money to get more.CommentsUnknownSex and Gender Information ValueDate RecordedSex Assigned at BirthNot on fileLegal BmcAahjgz10/10/2013 8:57 AM ESTGender IdentityNot on fileSexual OrientationNot on file Last Filed Vital Signs Vital SignReadingTime TakenCommentsBlood Lfzrbzxm045/8212/15/2024 3:17 PM EDT Abyjt792212/15/2024 3:17 PM EDTTemperature--Respiratory Zdtz185112/15/2024 3:17 PM EDTOxygen Sdgpybvjym09%12/15/2024 3:17 PM EDTInhaled Oxygen Concentration-- Vgzihc80.9 kg (154 lb)12/15/2024 3:17 PM SQTWkeabu473 cm (5' 8.5 )12/15/2024 3:17 PM EDTBody Mass Index23.0812/15/2024 3:17 PM EDT Plan of Treatment Health MaintenanceDue DateLast DoneCommentsVaricella vaccine (1 of 2 - 13+ 2- dose series)1993HIV jfqjcv4607/08/1995Hepatitis C fqfazu2107/08/1998Hepatitis B vaccine (1 of 3 - 19+ 3-dose series)1999Pap smear2001Cervical cancer kosodn8407/08/2010HPV (without or with Pap)07/08/20106376Yogxqi96/20/2020Breast cancer cuqkbj762DTaP/Tdap/Td vaccine (2 - Td or Tdap)08/25/2024 08/25/2014Flu vaccine (#1)5COVID-19 Vaccine ( - 2023- season) 2025Depression Wdxpik79605/, 12/15/2024HPV vaccine (No Doses Required)CompletedHepatitis A vaccineAged OutNo longer eligible based on patient's age to complete this topicHib vaccineAged OutNo longer eligible based on patient's age to complete this topicMeningococcal (ACWY) vaccineAged OutNo longer eligible based on patient's age to complete this topicMeningococcal B vaccineAged OutNo longer eligible based on patient's age to complete this topic Pneumococcal 0-49 years VaccineAged OutNo longer eligible based on patient's age to complete this topicPolio vaccineAged OutNo longer eligible based on patient's age to complete this topic Insurance Care Teams Team MemberRelationshipSpecialtyStart DateEnd Date Elysia Hall, [address] [place] [address] [place] [address] PCP - GeneralFamily Medicine11/08/24
== END 2025-05-10 10:35 | disposition home or self-care (01) ==
LOC: PST 10:34
PROVIDERS: Visit Provider Surgery
DX: Z01.818 Encounter for other preprocedural examination (principal); Z12.11 Encounter for screening for malignant neoplasm of colon

== ENCOUNTER 2025-05-17 06:55 | Day surgery (SDC) | payer OTHER, SELFPAY ==
--- NOTE | 2025-05-17 | OP_ITS ---
OPERATION DATE: 05/17/2025 PREOPERATIVE DIAGNOSIS: Colorectal screening. POSTOPERATIVE DIAGNOSIS: Mild sigmoid diverticulosis. PROCEDURE: Colonoscopy to cecum. SURGEON: Perfecto Adair M.D. ANESTHESIA: Monitored anesthesia care. ESTIMATED BLOOD LOSS: Zero. INDICATIONS AND CONSENT: Patient is a 44-year-old female, presents for colorectal screening. Indications, risks, benefits, alternatives of proceeding with colonoscopy were explained extensively to the patient, including the risks of bleeding, colon perforation or anesthetic complications. All of her questions were answered. Informed consent was obtained. PROCEDURE: Patient brought to the operating room, placed in the left lateral decubitus position. Monitored anesthesia care was provided. Rectal exam was performed which showed no masses or blood. The scope was inserted into the anal canal. Under direct visualization was advanced. With the aid of abdominal compression, it was advanced to the cecum, where cecal markings were clearly identified. There were no mass lesions or polyps. No inflammatory changes or ulcerations. There was redundancy of the colon with a tortuous colon. Within the sigmoid, there was mild sigmoid diverticulosis, without inflammatory changes or scarring. The scope was retroflexed in the anal canal. There was no significant hemorrhoidal disease. The scope was then withdrawn. Patient tolerated procedure well, was sent to recovery room in good condition.f/u screening colonoscopy should be in 10 years. CC: Patient?s family physician. MAYELIN
--- OUTSIDE RECORDS SUMMARY | 2025-05-17 06:59 | XMS_ITS | Clinical Summary ---
Author Organization [facility] Address [address] [place] [address] Care Team Providers Care Flight Communications Officer Name Role Phone Elysia Hall DO Primary Care Provider [phone] Allergies Active AllergyReactionsCriticalityNoted DateCommentsFish Containing Products Nausea Only,Other (See Comments),Nausea And XaydghalNrxj93/10/2019 Vision loss Medications MedicationSigDispense QuantityRefillsLast FilledStart DateEnd DateStatus naltrexone 1.5 mg capsule Take 1.5 mg by mouth once daily.Active ascorbic acid (vitamin C) (VITAMIN C) 100 mg Tablet Take 100 mg by mouth in the morning.Active coenzyme Q10 30 mg capsule Take 30 mg by mouth.Active collagen/biotin/ascorbic acid (COLLAGEN 1500 PLUS C ORAL) Active afibeck-khjj-bbdid-oreg-capryl 100 mg-150 mg- 50 mg-150 mg Capsule Active mecobalamin (B12 ACTIVE ORAL) Active FREE-TEXT MEDICATION Burn per patient OTCActive vitamin B complex (B COMPLEX ORAL) Active DANDELION ROOT ORAL Active digestive enzymes combo no.7 Capsule Active HYDROcodone-acetaminophen (NORCO) 5-325 mg tablet Take 1 tablet by mouth every six hours as needed for pain. 8 tablet 07/15/2023ctive Additional Information Patient not taking.Reported on 09/02/2023 calcitRIOL 0.25 mcg capsule Take 1 capsule (0.25 mcg) by mouth once daily. Contact Dr Mittal's staff for refills BEFORE you areout of medication 90 capsule ctive Additional Information Patient not taking.Reported on 09/02/2023 ondansetron (ZOFRAN) 4 mg tablet Take 1 tablet (4 mg) by mouth every six hours as needed for nausea. 6 tablet 07/16/2023ctive TIROSINT 150 mcg capsule Take 1 capsule (150 mcg) by mouth once daily, 30 min prior to meal. Take 1 tablet daily 90 capsule ctive Active Problems ProblemNoted DateDiagnosed DatePapillary thyroid mrohvrior60/27/2023S/P total phmmzbqfettfq91/27/2023Hypoparathyroidism after pwapifjnc43/27/2023Thyroid uwbjic8407/09/2023Epstein Blankenship jlaittike54/21/2023Hashimoto's taxyigx3107/09/2023 Family History Medical HistoryRelationNameCommentsAutoimmune diseaseFatherCancerFather Autoimmune diseaseMotherCancerMotherAnesth problemsNeg HxBleeding disorderNeg Hx Deep vein thrombosisNeg HxPulmonary embolismNeg HxRelationNameStatusComments FatherMother Social History Tobacco UseTypesPacks/DayYears UsedDateSmoking Tobacco: NeverSmokeless Tobacco: Never Tobacco Cessation:Counseling Given: Not Answered Alcohol UseStandard Drinks/WeekCommentsNot Currently0 (1 standard drink = 0.6 oz pure alcohol)AUDIT-CAnswerDate RecordedQ1: How often do you have a drink containing alcohol?Never07/15/2023Q2: How many drinks containing alcohol do you have on a typical day when you are drinking?Patient does not drink07/15/2023Q3: How often do you have six or more drinks on one occasion?Never07/15/2023Hunger Vital SignAnswerDate RecordedWithin the past 12 months, you worried that your food would run out before you got the money to buymore.Never true07/15/2023 Within the past 12 months, the food you bought just didn't last and you didn't have money to get more.Never true07/15/2023RAPARE - TransportationAnswerDate RecordedIn the past 12 months, has lack of transportation kept you from medical appointments or from getting medications?No07/15/2023In the past 12 months, has lack of transportation kept you from meetings, work, or from getting things needed for daily living?No07/15/2023CommentsNoSex and Gender Information ValueDate RecordedSex Assigned at BirthNot on fileLegal ZecHashtq28/17/2023 12:22 PM EDTGender IdentityNot on fileSexual OrientationNot on file Last Filed Vital Signs Vital SignReadingTime TakenCommentsBlood Khazukgj849/7204/21/2024 10:06 AM EDT Iwsdi209104/21/2024 10:06 AM OGVNirondodwou45.3 ??C (97.3 ??F)04/21/2024 10:06 AM EDTRespiratory Nqov5402 10:06 AM EDTOxygen Svvjosgsks77%07/16/2023 7:18 AM ESTInhaled Oxygen Concentration--Bjadtp82.7 kg (151 lb 7.3 oz)04/21/2024 10:06 AM ARJGopqgz865.3 cm (5' 9 )07/15/2023 5:49 AM ESTBody Mass Index22.37 07/15/2023 5:49 AM EST Plan of Treatment Health MaintenanceDue DateLast DoneCommentsHepatitis C Hrvtmxybc1980 Hepatitis B Vaccine ages 19 years and older (1 of 3 - 19+ 3-dose series) 1999Cervical Cancer Screening: Zjsudthd28/20/2001Alternating Mammogram/MRI /2Breast Cancer Fsgptktpi41/29/9468Hujcxktxl82/29/2024 2DTaP,Tdap,and Td Vaccines (2 - Td or Tdap)/12/2014COVID-19 Vaccine (2024- season)2025Influenza Vaccine (#1)2025 Respiratory Syncytial Virus (RSV) or ages 60 years and older (1 - 1- dose 75+ series)2055Pneumococcal CombinedAged OutNo longer eligible based on patient's age to complete this topicRespiratory Syncytial Virus (RSV) ages 0 thru 19 monthsAged OutNo longer eligible based on patient's age to complete this topic Insurance Care Teams Team MemberRelationshipSpecialtyStart [place] [address] [place] [id number] PCP - GeneralFamily Cjnehxkc56/8/23
--- OUTSIDE RECORDS SUMMARY | 2025-05-17 06:59 | XMS_ITS | Clinical Summary ---
Author Organization [facility] Address [address], [address] [place] [address] Care Team Providers Care Activity Specialist Name Role Phone Elysia Hall Primary Care Provider [phone] Allergies Active AllergyReactionsCriticalityNoted DateCommentsFish Protein-Containing Drug ProductsNausea Only,Other (See Comments)High01/16/2023 Vision loss Medications MedicationSigDispense QuantityRefillsLast FilledStart DateEnd DateStatus Levothyroxine Sodium (TIROSINT) 150 MCG CAPS Take 150 mcg by mouth daily02/03/2024ctive liothyronine (CYTOMEL) 5 MCG tablet Take 1 tablet by mouth 2 times dailyActive ivermectin 3 MG tablet Take by mouth onceActive Active Problems ProblemNoted DateDiagnosed DateHypoparathyroidism after kxzrhytuy37/27/2023 Papillary thyroid rafpwtiuu00/27/2023S/P total vficrpjdvsqps19/27/2023Epstein Blankenship diwfovpul22/21/2023Hashimoto's qigclik5207/09/2023Thyroid witxjx4707/09/2023 Hearing loss of right ear01/05/2023 Social History Tobacco UseTypesPacks/DayYears UsedDateSmoking Tobacco: NeverSmokeless Tobacco: Never Tobacco Cessation:Counseling Given: Not Answered [facility] UtilitiesAnswerDate RecordedIn the past 12 months has the electric, gas, oil, or water company threatened to shut off services in your home?No12/15/2024 PHQ-2AnswerDate RecordedPHQ-9 Total Hxnki773Exercise Vital SignAnswer Date RecordedOn average, how many [...] were you homeless or living in a group home (including now)?No12/15/2024 Food InsecurityAnswerDate RecordedWithin the past 12 months, you worried that your food would run out before you got the money to buymore.Within the past 12 months, the food you bought just didn't last and you didn't have money to get more.CommentsUnknownSex and Gender Information ValueDate RecordedSex Assigned at BirthNot on fileLegal KhpLypchh85/10/2013 8:57 AM ESTGender IdentityNot on fileSexual OrientationNot on file Last Filed Vital Signs Vital SignReadingTime TakenCommentsBlood Mvdqmorv650/8212/15/2024 3:17 PM EDT Donkb888212/15/2024 3:17 PM EDTTemperature--Respiratory Dbjz011812/15/2024 3:17 PM EDTOxygen Erqhciushv39%12/15/2024 3:17 PM EDTInhaled Oxygen Concentration-- Ospkgp75.9 kg (154 lb)12/15/2024 3:17 PM WHKHurgme070 cm (5' 8.5 )12/15/2024 3:17 PM EDTBody Mass Index23.0812/15/2024 3:17 PM EDT Plan of Treatment Health MaintenanceDue DateLast DoneCommentsVaricella vaccine (1 of 2 - 13+ 2- dose series)1993HIV lklfbx3507/08/1995Hepatitis C wwjksw6607/08/1998Hepatitis B vaccine (1 of 3 - 19+ 3-dose series)1999Pap smear2001Cervical cancer itzifi2807/08/2010HPV (without or with Pap)07/08/20109483Lygodp98/20/2020Breast cancer zwvfcb382DTaP/Tdap/Td vaccine (2 - Td or Tdap)08/25/2024 08/25/2014Flu vaccine (#1)5COVID-19 Vaccine ( - 2023- season) 2025Depression Iyedra02605/, 12/15/2024HPV vaccine (No Doses Required)CompletedHepatitis A vaccineAged [...] Elysia Hall, [address] [place] [address] PCP - GeneralFamily Medicine11/08/24
--- OUTSIDE RECORDS SUMMARY | 2025-05-17 06:59 | XMS_ITS | Patient Health Record ---
Author Organization [facility] Address [address] [place] [address] Care Team Providers Care Secondary History Teacher Name Role Phone ALEXI HOLLAND MD Unavailable Unavailable Reason For Referral No Information Plan Of Treatment No Information Insurance Providers Payer Name Payer Address Payer Phone Subscriber Number Group Number Insured Name Patient Relationship to Insured Coverage Start Date Coverage End Date [facility] [address] [place] [phone] [id number] Connie Rivera Self - patient is the insured
--- OUTSIDE RECORDS SUMMARY | 2025-05-17 07:00 | XMS_ITS | Patient Health Record ---
Author Organization [facility] in [place] Address [address] [place] [address] Care Team Providers Care Ticket Machine Operator Name Role Phone Elysia Hall DO Primary Care Provider Unavailabl e Allergies Allergen (clinical drug ingredient) Drug/Non Drug Allergy documented on EMR Reaction Allergy Type Onset Date Status Fish-EPAUnknownDrug AllergyActive Reason For Referral No Information Social History Tobacco Use: Social History Observation Description Date Details (start date - stop date) Never Smoker NA - NA Tobacco Use/Smoking Question Answer Notes Patient is a nonsmoker Problems Problem Type SNOMED Code ICD Code Onset Dates Problem Status W/U Status Risk Notes Problem Thyroid cancer (462271467) Cancer of thyr oid (C73) ActiveconfirmedProblemNon-toxic single thyroid nodule (073245336)Left thyroid nodule (E04.1)Activeconfirmed Plan Of Treatment Pending Test Test Name Order Date CMP (COMPLETE METABOLIC PANEL) 3 BILIRUBIN, DIRECT (CONJUGATED) 3 LIPID PANEL (CHOL/TRIG/HDL/LDL) 01/08/20 CBC WITH DIFF 01/07/2023 US Liver 01/28/2023 US Thyroid 01/07/2023 BILIRUBIN, IND 01/07/2023 PET/CT Skull Base to Mid-Thigh 3 NON-INSTRUMENT MAKER APPRENTICE CYTOLOGY REPORT 03/11/2023 Insurance Providers Payer Name Payer Address Payer Phone Subscriber Number Group Number Insured Name Patient Relationship to Insured Coverage Start Date Coverage End Date MMO [address] [place], [place] [id number] Connie Rivera Self - patient is the insured Medical (General) History Surgical History Surgery Date(Month/Year) Right Toe
--- OUTSIDE RECORDS SUMMARY | 2025-05-17 07:00 | XMS_ITS | Clinical Summary ---
Author Organization [facility] Address [address] [place] [address] Care Team Providers Care Work From Home Name Role Phone Elysia Hall MD Primary Care Provider [phone] Allergies Active AllergyReactionsCriticalityNoted DateCommentsFish AllergyGI intolerance, Nausea Only,Nausea And HvumgnnlTzif86/10/2019 Other Reaction(s): Other (See Comments), Vomiting Vision loss Fish Protein-Containing Drug ProductsNausea TrepTadz81/30/2023 Other Reaction(s): Other (See Comments) Vision loss [...] DateHearing loss of right ear01/05/2023 Encounters DateTypeDepartmentCare ZkndZazvsajifgx71/12/2025External Result Encounter [facility] External Department Unsolicited Amanda Fish CNM 03/16/2025Orders Only [facility] [address] [place] [address] Amanda Fish CNM History of hormone lfuixsmdgzq36/27/2025 1:10 PM EDTOffice Visit [facility] [address] [place] [address] [place] [address] Jessie Madrid PA Postoperative visit; S/P tubal ligation; S/P endometrial jlugfnap19/27/2025amboo flowsheet [facility] [address] [facility] [address] Jesise Madrid PA 03/09/2025Telephone [facility] [address] [facility] [place] [address] Jessie Madrid PA 03/03/2025bstract [facility] [address] [facility] [place] [address] Misael Conklin, 03/03/2025bstract [facility] [address] [facility] [place] [address] Misael Conklin, 03/03/2025linisync Result Encounter [facility] External Department Unsolicited Misael Conklin, 02/14/2025Refill [facility] [address] [place] [address] Amanda Fish CNM AMA (advanced maternal age) multigravida 35+, first trimester ([facility])from Last 3 Months Immunizations ImmunizationAdministration DatesNext JtmRumo5908/25/2014 Family History Medical HistoryRelationNameCommentsNo Known ProblemsBrotherArthritisMaternal GrandfatherNo Known ProblemsSonRelationNameStatusCommentsBrother2 brothersFather AliveMaternal GrandfatherMotherAliveSonAlive1 son Social History Tobacco UseTypesPacks/DayYears UsedDateSmoking Tobacco: NeverPassive Smoke Exposure: NeverSmokeless Tobacco: Never Tobacco Cessation:Counseling Given: Not Answered Alcohol UseStandard Drinks/WeekCommentsYes1 (1 standard drink = 0.6 oz pure alcohol)caffeine intake : 1-2 cups per day ; coffeeCommentsNoSex and Gender InformationValueDate RecordedSex Assigned at BirthNot on fileLegal Sex Eioyqd1210/01/2022 7:25 PM EDTGender FxztvmdgWesejl16/15/2023 7:25 PM EDTSexual OrientationNot on file Last Filed Vital Signs Vital SignReadingTime TakenCommentsBlood Ytpwjaqp945/7403/15/2025 1:21 PM EDT Iwcyp221401/05/2023 4:01 PM XXYMouoveehqgg66.8 ??C (98.2 ??F)01/05/2023 4:01 PM EDTRespiratory Cebv556301/05/2023 4:01 PM EDTOxygen Isxrvixyso46%01/05/2023 4:01 PM EDTInhaled Oxygen Concentration--Vxvdxt89 kg (150 lb)03/15/2025 1:21 PM EDT Sykpkw661.5 cm (5' 7.5 )01/05/2023 4:01 PM EDTBody Mass Index23.15001/05/2023 4:01 PM EDT Plan of Treatment Health MaintenanceDue DateLast BpcqLewrfxrmRgfoljiys30/29/ Influenza Vaccine (#1)2025Pap Smear07/17/852850ervical Cancer Eosmofrjs42/29/2027HPV/Qjnhuv88, 12/03/2017 Procedures Procedure NamePriorityDate/TimeAssociated DiagnosisCommentsTESTOSTERONE, FREE AND TOTAL, FEMALE OR CHILDREN ([facility])Fkfvgwi2003/31/2025 12:45 PM EDT JBVZQIWGBHgqrlgi16/12/2025 12:45 PM EDT INSULIN ([facility])Dujrtvf5303/31/2025 12:45 PM EDT DHEA ZIVLJSJZtcvnog67/12/2025 12:45 PM EDT ZNERKUPZEXEIDeiykhb23/12/2025 12:45 PM EDT GLUCOSE ([facility])Qwejwaf2503/31/2025 12:45 PM EDT TBH PREG QUANT RPGYmkpbdn38/15/2025 6:24 AM EDT ALL CBC WITH AUTO LGMITwlemnz03/15/2025 6:24 AM EDT THINPREP PAP AND HPV MRNA E6/E7 REFLEX HPV 16,18/69Ilxmpwo80/29/2022 PAP OLSWKVzoopgh53/29/2022 12:00 AM ESTBI MAMMOGRAM SCREENING TOMOSYNTHESIS ZZXRNZBRZTirpxig54/29/2022 Encounter for other screening for malignant neoplasm of breast Encounter for screening for malignant neoplasm of cervix Encounter for gynecological examination (general) (routine) without abnormal findings from Last 3 Months or Most Recently Relevant to Health Maintenance Results * GLUCOSE ([facility]) (03/31/2025 12:45 PM EDT)ComponentValueRef RangeTest MethodAnalysis TimePerformed AtPathologist UqtiqkvcmRvbsudw6092 - 99 mg/dL [facility]: ?? PERFORMED AT [address], [place] [address] Specimen (Source)Anatomical Location / LateralityCollection Method / Volume Collection TimeReceived Time03/31/2025 12:45 PM EDT03/31/2025 4:24 PM EDT Narrative Authorizing ProviderResult TypeResult StatusValeanthony Arreola [facility] CNMLAB BLOOD ORDERABLESFinal ResultPerforming OrganizationAddressCity/State/ZIP CodePhone Number [facility] * INSULIN ([facility]) (03/31/2025 12:45 PM EDT)ComponentValueRef RangeTest MethodAnalysis TimePerformed AtPathologist SignatureINSULIN7.061.00 - 23.00 uIU/mLPROMEDICAComment: Ref. range is for FASTING NON-DIABETIC POPULATION. ?? PERFORMED AT [address], [place] [address] Specimen (Source)Anatomical Location / LateralityCollection Method / Volume Collection TimeReceived Time03/31/2025 12:45 PM EDT03/31/2025 4:24 PM EDT Narrative Authorizing ProviderResult TypeResult StatusValerie L [facility] CNMLAB BLOOD ORDERABLESFinal ResultPerforming OrganizationAddressCity/State/ZIP CodePhone Number [facility] * (ABNORMAL) TESTOSTERONE, FREE AND TOTAL, FEMALE OR CHILDREN ([facility]) (03/31/2025 12:45 PM EDT)ComponentValueRef RangeTest MethodAnalysis Time Performed AtPathologist SignatureTESTOSTERONE, FEMALE OR LXBRIBNU934 - 55 ng/dLPROMEDICAComment: REFERENCE INTERVAL: Testosterone by Pack Worker Supervisor Females Premenopausal ??9-55 ng/dL Postmenopausal 5-32 ng/dL INTERPRETIVE INFORMATION: Testosterone by Pack Worker Supervisor Free or bioavailable testosterone measurements may provide supportive information. For individuals on testosterone-suppressing hormone therapies (e.g., antiandrogens or estrogens), refer to cisgender female reference intervals. For a complete set of all established reference intervals, refer to [employer]/Tests/Pub/[id number]. This test was developed and its performance characteristics determined by [employer]. It has not been cleared or approved by the [place] Food and Drug Administration. This test was performed in a CLIA certified laboratory and is intended for clinical purposes. FREE TESTOSTERONE, FEMALE OR CHILDREN0.8(L)1.1 - 5.8 pg/mLPROMEDICAComment: REFERENCE INTERVAL: Testosterone, Free by Pack Worker Supervisor Females Postmenopausal: 0.6 - 3.8 pg/mL INTERPRETIVE INFORMATION: Testosterone, Free by Pack Worker Supervisor Free testosterone concentration is calculated using total testosterone (measured by mass spectrometry) and the binding constant of testosterone and sex hormone-binding globulin (SHBG). For individuals on testosterone-suppressing hormone therapies (e.g., antiandrogens or estrogens), refer to cisgender female reference intervals. For a complete set of all established reference intervals, refer to [employer]/Tests/Pub/[id number]. This test was developed and its performance characteristics determined by [employer]. It has not been cleared or approved by the [place] Food and Drug Administration. This test was performed in a CLIA certified laboratory and is intended for clinical purposes. Performed By: [employer] [address] [place] [id number] Programming Instructor: Neo Noel MD, PhD CLIA Number: [id number] SEX HORMONE BINDING GLOBULIN, FEMALE OR GHZGPFIZ83657 - 122 nmol/LPROM[facility] Comment: REFERENCE INTERVAL: Sex Hormone Binding Globulin Access complete set of age- and/or gender-specific reference intervals for this test in the [employer] [facility] Test Directory ([employer]). Specimen (Source)Anatomical Location / LateralityCollection Method / Volume Collection TimeReceived Time03/31/2025 12:45 PM EDT03/31/2025 4:24 PM EDT Narrative Authorizing ProviderResult TypeResult StatusValeanthony Fish CNMLAB BLOOD ORDERABLESFinal ResultPerforming OrganizationAddressCity/State/ZIP CodePhone Number [facility] * Progesterone (03/31/2025 12:45 PM EDT)ComponentValueRef RangeTest Method Analysis TimePerformed AtPathologist EmkqwnhspASFBWGKGTQWF37.7ng/mLPROM[facility] Comment: FEMALES: 1st Tri: ??4.7-50.7 ng/ml 2nd Tri: ??19.4-45.3 ng/ml MENSTRUATING FEMALES: Follicular: ??0.3-1.5 ng/ml Mid Luteal: ??5.2-18.6 ng/ml Post [place]: <0.1-0.8 ng/ml ?? PERFORMED AT [address], [place] [address] Specimen (Source)Anatomical Location / LateralityCollection Method / Volume Collection TimeReceived Time03/31/2025 12:45 PM EDT03/31/2025 4:24 PM EDT Narrative Authorizing ProviderResult TypeResult StatusValeanthony Olvera CNMLAB BLOOD ORDERABLESFinal ResultPerforming OrganizationAddressty/State/ZIP CodePhone Number [facility] * DHEA-sulfate (03/31/2025 12:45 PM EDT)ComponentValueRef RangeTest Method Analysis TimePerformed AtPathologist SignatureDHEA S5619 - 231 ug/dLPROMEDICA Comment: ?? PERFORMED AT [address],[place] [address] Specimen (Source)Anatomical Location / LateralityCollection Method / Volume Collection TimeReceived Time03/31/2025 12:45 PM EDT03/31/2025 4:24 PM EDT Narrative Authorizing ProviderResult TypeResult StatusAmanda Fish CNMLAB BLOOD ORDERABLESFinal ResultPerforming OrganizationAddressCity/State/ZIP CodePhone Number [facility] * Estradiol (03/31/2025 12:45 PM EDT)ComponentValueRef RangeTest MethodAnalysis TimePerformed AtPathologist MwieypobvKLIJOGJQW29.9pg/mLPROMEDICAComment: NON- FEMALES Mid follicular: 25-115 pg/mL Ovulatory [...] when using this assay. ?? PERFORMED AT [facility] [address] [facility]. [address],[place] [address] Specimen (Source)Anatomical Location / LateralityCollection Method / [...] Rubin DOCLINISYNCFinal Result Performing OrganizationAddressCity/State/ZIP CodePhone Number [facility] * ALL CBC WITH AUTO DIFF (03/03/2025 6:24 AM EDT)ComponentValueRef RangeTest MethodAnalysis TimePerformed AtPathologist SignatureTBH WBC5.44.0 - 11.0 10 3/uLTBHTBH RBC4.254.20 - 5.40 10 6/uLTBHTBH HGB12.912.0 - 16.0 g/dLTBHTBH HCT 38.536.0 - 48.0 %TBHTBH MCV90.681.0 - 99.0 fLTBHTBH MCH30.426.7 - 34.0 pgTBH TBH MCHC33.529.9 - 35.2 g/dLTBHTBH RDW12.211.0 - 15.0 %TBHTBH YHA938003 - 450 10 3/uLTBHTBH MPV11.49.5 - 13.5 [...] 6:26 AM EDT Narrative [facility] - 03/03/2025 6:38 AM EDT Authorizing ProviderResult TypeResult StatusCorey Rubin DOCLINISYNCFinal Result Performing OrganizationAddressCity/State/ZIP CodePhone Number [facility] * THINPREP PAP AND HPV MRNA E6/E7 REFLEX HPV 16,18/45 (07/17/2022)ComponentValue Ref RangeTest MethodAnalysis TimePerformed AtPathologist SignatureCLINICAL INFORMATION:None givenNOMS LEGACY EXTERNAL LABLMP:NONE GIVENNOMS LEGACY EXTERNAL LABPREV. PAP:NONE GIVENNOMS LEGACY EXTERNAL LABPREV. BX:NONE GIVEN [facility]GAC[facility] EXTERNAL LABSOURCE:None givenNOMS LEGACY EXTERNAL LABSTATEMENT OF ADEQUACY:SEE COMMENTNOND LEGACY EXTERNAL LABComment: Satisfactory for evaluation. Endocervical/transformation zone component present. INTERPRETATION/RESULT:Negative for intraepithelial lesion or malignancy.[facility]NAL LABCYTOTECHNOLOGIST:SEE COMMENTNOND LEGACY EXTERNAL LABComment: PCJ, SCT(ASCP) CT screening location: [employer] [place] [address]. COMMENTSEE COMMENTNOND LEGACY EXTERNAL LABComment: EXPLANATORY NOTE: The Pap [...] current clinical information. HPV MRNA E6/E7Not DetectedNot DetectedNOMS LEGACY EXTERNAL LABComment: Methodology: Belting Cutter-Mediated Amplification This assay detects E6/E7 viral messenger RNA (mRNA) from 14 high-risk HPV types (16,18,31,33,35,39,45,51,52,56,58,59,66,68). Cervical sources are required for HPV testing. If a vaginal source from a patient who has had a total hysterectomy with removal of cervix was submitted, please contact the testing laboratory for alternative testing options. For additional information, please refer to http://education.[employer]/faq/DCY495l0 (This link if provided for information/ educational purposes only.) Specimen (Source)Anatomical Location / LateralityCollection Method / Volume Collection TimeReceived Time07/17/2022 Narrative Authorizing ProviderResult TypeResult StatusValeanthony Fish CNMECW LABSFinal ResultPerforming OrganizationAddressCity/State/ZIP CodePhone Number [facility] * Bilateral screening mammogram with [...] Narrative 07/17/2022 12:00 AM EST PERFORMED AT [facility] LOCATION:[place] [address] COMPARISON: Initial baseline study TECHNIQUE: ??2D and 3D Tomosynthesis of the right and left breasts was performed. FINDINGS: Breast composition demonstrates scattered fibroglandular densities. No suspicious microcalcifications, asymmetry, architectural distortion, or associated features are present. Procedure Note CONVERSION, GENERIC - 01/23/2023 PERFORMED AT [facility] LOCATION:[place] [address] COMPARISON: Initial baseline study TECHNIQUE: 2D and [...] Health Maintenance Insurance * Guarantor: Connie Rivera LAccount TypeRelation to PatientDate of BirthPhone Billing AddressPersonal/[address] [place] [address] Care Teams Team MemberRelationshipSpecialtyStart DateEnd Date Elysia Hall MD [address] [place] [address] [place] [address] PCP - GeneralFamily Medicine01/02/23
[2025-05-17 07:15] VITALS: BP 111/67; PULSE 87; TEMP 36.3; O2SAT 96; BMI 22.3
[2025-05-17 08:23] VITALS: BP 95/57; PULSE 85; TEMP 36.4; O2SAT 97
[2025-05-17 08:38] VITALS: BP 99/67; PULSE 90; O2SAT 96
[2025-05-17 08:53] VITALS: BP 102/65; PULSE 77; O2SAT 100
== END 2025-05-17 08:53 | disposition home or self-care (01) ==
LOC: SURGOUT 06:57
PROVIDERS: Anesthesiology; Visit Provider Surgery
PROC: (CPT 812; principal; 2025-05-17 07:55)
DX: Z12.11 Encounter for screening for malignant neoplasm of colon (principal); K57.30 Diverticulosis of large intestine without perforation or abscess without bleeding; Z85.850 Personal history of malignant neoplasm of thyroid; M06.9 Rheumatoid arthritis, unspecified; Z90.49 Acquired absence of other specified parts of digestive tract; Z90.79 Acquired absence of other genital organ(s); E89.0 Postprocedural hypothyroidism
CPT/HCPCS: 45378; 36415; 84703; J2371; J2704